=== PATIENT | female | born 1960 | race Caucasian/White ===

== ENCOUNTER → 2019-07-28 11:16 | Outpatient (BNVA) | payer OTHER, SELFPAY | PROVIDERS: Family Provider Nurse Practitioner; PCP Nurse Practitioner; Visit Provider Specialist | DX: M50.31 Other cervical disc degeneration, high cervical region (principal) | CPT/HCPCS: 99214 ==

== ENCOUNTER → 2019-08-27 15:13 | Outpatient (BNVA) | payer OTHER, SELFPAY | PROVIDERS: Family Provider Nurse Practitioner; PCP Nurse Practitioner; Referring Provider Nurse Practitioner; Visit Provider Podiatrist Foot & Ankle Surgery | DX: M21.612 Bunion of left foot (principal); M20.42 Other hammer toe(s) (acquired), left foot; M25.872 Other specified joint disorders, left ankle and foot; M79.672 Pain in left foot | CPT/HCPCS: 73630 ==

== ENCOUNTER → 2019-10-22 10:12 | Outpatient (BNVA) | payer OTHER, SELFPAY | PROVIDERS: Family Provider Nurse Practitioner; PCP Nurse Practitioner; Visit Provider Specialist | DX: M25.561 Pain in right knee (principal); M25.562 Pain in left knee | CPT/HCPCS: 73560; 73565 ==

== ENCOUNTER 2019-11-04 10:43 | Outpatient (CLI) | payer OTHER, SELFPAY ==
--- NOTE | 2019-11-04 10:49 | MM_ITS ---
WS: [id number] BILATERAL SCREENING DIGITAL MAMMOGRAM WITH CAD HISTORY: SCREENING COMPARISON: 05/25/2016 and 07/10/2018 Bilateral CC and MLO views submitted. Computer aided detection analyzed. Breast composition: There are scattered areas of fibroglandular density. No suspicious masses, microc alcifications or architectural distortion. Long-term asymmetry in the anterior RIGHT breast in the virk bareolar region. MM/[place] [id number] IMPRESSION: BI-RADS: 2-Benign FOLLOW UP: 1 Year Follow-up
== END 2019-11-04 10:44 | disposition home or self-care (01) ==
LOC: RADSHAW 10:44
PROVIDERS: PCP Nurse Practitioner; Visit Provider Nurse Practitioner
DX: Z12.31 Encounter for screening mammogram for malignant neoplasm of breast (principal)
CPT/HCPCS: 77067

== ENCOUNTER 2019-12-21 14:15 | Emergency (ER) | payer OTHER, SELFPAY ==
[2019-12-21 14:25] VITALS: BP 115/74; PULSE 81; RESP 14; TEMP 36.6; O2SAT 95; BMI 41.1
--- NOTE | 2019-12-21 14:26 | USCV_ITS ---
Glenna Miramontes Age: 59 Gender: F : 1960 Exam Date: 12/21/2019 15:15 Ordering Phys: Minnie Martinez Technologist: AVILA SUAZO Exam Location: [facility] [place] Indication: LEG SWELLING PROCEDURES: Venous duplex imaging was performed in only the right lower extremity. The following venous structures were evaluated: common femoral vein, profunda vein, proximal portion of the greater saphenous vein, superficial femoral vein, and the popliteal vein. In addition, the posterior tibial and peroneal trunk were evaluated. Serial compression, augmentation maneuvers, and spectral Doppler flow evaluation were performed. FINDINGS: Normal 2-D Doppler and augmentation and compressibility throughout the lower extremity venous structures. Additional imaging through the proximal calf veins also reveals no thrombus. Limited evaluation of the greater saphenous vein is patent with no thrombus. CONCLUSIONS No DVT right lower extremity. Dr. Cecy Aguila DO (Electronically Signed) Final Date: 22 December 2019 08:05 Amended: 24 December 2019 11:36 C
[2019-12-21 14:43] VITALS: BP 154/90; PULSE 79; RESP 18; O2SAT 97
[2019-12-21 14:48] VITALS: PULSE 79
--- NOTE | 2019-12-21 14:50 | ED_ITS ---
HPI - Extremity Problem General: Chief complaint: Extremity Problem,Nontraumatic Stated complaint: right leg swelling/possible blood clot Time Seen by Provider: 12/21/19 14:41 Source: patient Mode of arrival: ambulatory Limitations: no limitations History of Present Illness: HPI Narrative: Patient is a nice 59-year-old female who [facility] ED [facility]. Patient tells me over the past 2 weeks she has noticed a cord like area to the medial aspect of her right lower extremity. [facility] and told they would continue to monitor however upon her visit today they requested she come to the emergency department for DVT rule out. Patient has not had any generalized swelling to her lower extremity. She does not complain of calf pain. She has not had any redness or swelling. She does not complain of any shortness of breath, difficulty breathing, or chest pain. MD Complaint: extremity pain Onset (ago): week(s) Location: right and lower extremity Radiation: none Relieving factors: nothing Exacerbating factors: nothing Associated symptoms: Reports no associated symptoms; Deny chest pain or fever(s) Context: other (no risk factors for DVT present ) Review of Systems 2 Const: Denies: fever(s) or chills Card: Denies: chest pain, palpitations, irregular heart rhythm, lightheadedness, syncope, pre-syncope, dyspnea on exertion, orthopnea or leg pain with exertion Resp: Denies: dyspnea Musc: Denies: joint pain or joint swelling Neuro: Denies: numbness in extremities, weakness in extremities or sensory changes REPLACED BY [facility] PFSH: Medical History (Updated 12/21/19 @ 15:44 by FILIBERTO Leslie) Aneurysm Cervicalgia Diabetes Hyperkinetic syndrome Hyperlipidemia Hypersomnia Hypertension Hypothyroidism Migraine Sleep apnea Spondylosis of cervicothoracic spine with myelopathy Family History Other Hypertension Denies family history of Diabetes CAD (coronary artery disease) Cancer Stroke Social History Smoking and tobacco status: never smoked Alcohol intake: never History of recent travel: No Physical Exam Const: COMMON NORMALS: no acute distress, patient oriented x3, no limitations and alert Resp: COMMON NORMALS: normal respiratory effort and clear to auscultation bilaterally AUSCULTATION: clear to auscultation bilaterally Cardio: COMMON NORMALS: regular rate and regular rhythm RATE: regular rate RHYTHM: regular rhythm Extremity: OTHER: bilateral varicose veins; pt has palpable cord to medial R lower extremity consistent with probable superficial thrombus; no LE swelling/redness; no calf pain/negative Micki's Neuro: COMMON NORMALS: patient oriented x3, moves all extremities, no focal motor deficits, no sensory deficits noted and gait normal SENSORIUM/ORIENTATION: Yes alert Course Vital Signs: Vital signs: Vital Signs Temperature 97.8 F 12/21/19 14:25 Pulse Rate 80 12/21/19 15:34 Respiratory Rate 18 12/21/19 15:34 Blood Pressure 149/87 12/21/19 15:34 Pulse Oximetry 95 12/21/19 15:34 MDM - Extremity (Nontraumatic) Imaging Data^: US venous R LE: My impression: Catracho Gaitan, tech-no DVT visualized Discharge Plan Discharge Patient Disposition: Home, Self-Care Clinical Impression: Acute superficial venous thrombosis of right lower extremity Condition: Stable Prescriptions: No Action multivitamin Capsule 1 cap PO DAILY RF: 0 potassium chloride 20 mEq tablet extended release 20 meq PO DAILY RF: 0 ferrous gluconate 240 mg (27 mg iron) tablet 240 mg PO DAILY RF: 0 aspirin [Aspir-81] 81 mg tablet,delayed release (DR/EC) 81 mg PO DAILY RF: 0 cetirizine 10 mg capsule 10 mg PO DAILY RF: 0 lisinopril 20 mg tablet 20 mg PO BID RF: 0 furosemide 20 mg tablet 10 mg PO QAM RF: 0 omeprazole 20 mg capsule,delayed release(DR/EC) 20 mg PO DAILY RF: 0 atorvastatin 10 mg tablet 10 mg PO DAILY RF: 0 sertraline 100 mg tablet 150 mg PO DAILY RF: 0 bupropion HCl 300 mg tablet extended release 24 hr 300 mg PO QAM RF: 0 zonisamide 100 mg capsule 400 mg PO DAILY RF: 0 levothyroxine 25 mcg capsule 25 mcg PO DAILY RF: 0 Discharge Orders: Discharge Order (Routine); Ordered 12/21/19 Ordered By: Minnie Martinez Referrals: Gisel Rasmussen, [facility] [Primary Care Provider] - Patient Instructions: Superficial Thrombophlebitis (ED), Thrombophlebitis - Superficial Activity Restrictions/Additional Instructions: As discussed you may begin taking an anti-inflammatory medication as well as alternating ice/heat for the superficial thrombus/clot to your right leg. [facility] for reevaluation. You may return to the emergency department for any worsening symptoms, redness, swelling, shortness of breath, chest pains, or any other concerns you may have. Coding Level of Care Code ED Postal Supervisor for Maira Keith Exam Expanded Problem Focused
[2019-12-21 15:34] VITALS: BP 149/87; PULSE 80; RESP 18; O2SAT 95
[2019-12-21 16:17] VITALS: BP 163/97; PULSE 76; RESP 16; TEMP 36.9; O2SAT 96
== END 2019-12-21 16:20 | disposition home or self-care (01) ==
PROVIDERS: Emergency Provider Physician Assistant; PCP Nurse Practitioner
DX: I82.811 Embolism and thrombosis of superficial veins of right lower extremity (principal); Z79.82 Long term (current) use of aspirin; E11.9 Type 2 diabetes mellitus without complications; I10 Essential (primary) hypertension; E78.5 Hyperlipidemia, unspecified
CPT/HCPCS: 12345; 93971; 99281; 99282

== ENCOUNTER → 2020-03-17 07:37 | Outpatient (BNVA) | payer OTHER, SELFPAY | PROVIDERS: PCP Nurse Practitioner; Visit Provider Nurse Practitioner | DX: Z11.59 Encounter for screening for other viral diseases (principal) | CPT/HCPCS: 87635 ==

== ENCOUNTER → 2020-06-09 13:31 | Outpatient (BNVA) | payer OTHER, SELFPAY | PROVIDERS: PCP Nurse Practitioner; Visit Provider Podiatrist Foot & Ankle Surgery | DX: M20.42 Other hammer toe(s) (acquired), left foot (principal); M21.612 Bunion of left foot; M25.879 Other specified joint disorders, unspecified ankle and foot | CPT/HCPCS: 73630 ==

== ENCOUNTER → 2020-07-04 17:34 | Outpatient (BNVA) | payer OTHER, SELFPAY | PROVIDERS: PCP Nurse Practitioner; Visit Provider Podiatrist Foot & Ankle Surgery | DX: M20.42 Other hammer toe(s) (acquired), left foot (principal); M24.572 Contracture, left ankle; M21.612 Bunion of left foot; M25.872 Other specified joint disorders, left ankle and foot | CPT/HCPCS: 87635 ==

== ENCOUNTER → 2020-08-01 13:22 | Outpatient (BNVA) | payer OTHER, SELFPAY | PROVIDERS: PCP Nurse Practitioner; Visit Provider Podiatrist Foot & Ankle Surgery | DX: Z01.812 Encounter for preprocedural laboratory examination (principal); M20.42 Other hammer toe(s) (acquired), left foot; M21.612 Bunion of left foot; M24.572 Contracture, left ankle; M25.872 Other specified joint disorders, left ankle and foot | CPT/HCPCS: 87635 ==

== ENCOUNTER 2020-08-05 07:01 | Day surgery (SDC) | payer OTHER, SELFPAY ==
[2020-07-07 09:23] VITALS: BMI 41.1
[2020-08-05] VITALS (7 sets, daily range): BP systolic 106–155; BP diastolic 59–79; PULSE 72–77; RESP 18; TEMP 36.2–36.6; O2SAT 95–99
--- NOTE | 2020-08-05 | SCC_ITS ---
Procedure Done: Left bunionectomy with double osteotomy CPT code 44743. Left gastrocnemius recession CPT code 77982. Left second hammertoe repair CPT code 62981. Left third hammertoe repair CPT code 25363. 11 seconds of fluoroscopic guidance, for a cumulative dose of 0.16 mGy, was provided to Dr. Haddad by the radiology department. C-arm images of the LEFT foot were saved for the patient's permanent record. YUNI
--- NOTE | 2020-08-05 06:40 | P.HP_ITS ---
Providers/Chief Complaint Primary Care Provider: KELSI Smith Chief Complaint: buinon left foot History of Present Illness Ms. Miramontes is a pleasant 59-year-old female presenting to clinic for evaluation of left foot pain. She complains of bunion pain, second toe and third toe pain that has been progressive over the course of many years, at this point it is affecting her everyday life, describes the nature of the pain is sharp stabbing. She has pain when weightbearing and while active. She has been utilizing orthotics as well as wide accommodative shoes. She has a history of a bunionectomy and hammertoe repair of the right foot this was performed by Dr. Springer. Patient is wishing to discuss surgical options for her left foot at this time as she has been exhausting conservative measures for approximately 2 y ears including stretching, NSAIDs, activity modifications, supportive shoes with wide toe box and orthotics. Review of Systems General: Reports: 10 or more systems reviewed and unremarkable except in HPI and below Const: Denies: fever(s) or chills Eyes: Denies: change in vision Card: Denies: chest pain or palpitations Resp: Denies: dyspnea or productive cough GI: Denies: abdominal pain, nausea or vomiting : Denies: flank pain Musc: Reports: extremity pain, joint pain, joint stiffness, limited range of m otion and deformity Skin/Breast: Reports: skin tenderness; Denies: rash Neuro: Reports: difficulty walking; Denies: numbness in extremities, sensory changes or frequent falls Psych: Denies: suicidal ideation Lul/Lymph: Denies: easy bruising Medications/Allergies Home Medications Medication Instructions Recorded Confirmed Last Taken Type aspirin 81 mg tablet,delayed 81 mg PO DAILY 07/28/19 07/07/20 Unknown History release atorvastatin 10 mg tablet 10 mg PO DAILY 07/28/19 07/07/20 Unknown History bupropion HCl 300 mg 24 hr tablet, 300 mg PO QAM 07/28/19 07/07/20 Unknown History extended release cetirizine 10 mg capsule 10 mg PO DAILY 07/28/19 07/07/20 Unknown History ferrous gluconate 240 mg (27 mg 240 mg PO DAILY 07/28/19 07/07/20 Unknown History iron) tablet furosemide 20 mg tablet 10 mg PO QAM 07/28/19 07/07/20 Unknown History levothyroxine 25 mcg capsule 25 mcg PO DAILY 07/28/19 07/07/20 Unknown History lisinopril 20 mg tablet 20 mg PO BID 07/28/19 07/07/20 Unknown History multivitamin 1 cap PO DAILY 07/28/19 07/07/20 Unknown History omeprazole 20 mg capsule,delayed 20 mg PO DAILY 07/28/19 07/07/20 Unknown History release potassium chloride 20 mEq 20 meq PO DAILY 07/28/19 07/07/20 Unknown History tablet,extended release sertraline 100 mg tablet 150 mg PO DAILY tab 07/28/19 07/07/20 Unknown History zonisamide 100 mg capsule 400 mg PO DAILY cap 07/28/19 07/07/20 Unknown History crutch #2 [id number] 07/06/20 07/07/20 Unknown Rx Allergies Allergy/AdvReac Type Severity Reaction Status Date / Time pravastatin Allergy unknown Verified 06/09/20 13:47 PFSH PFSH: Medical History (Updated 08/05/20 @ 07:07 by Jassi Haddad DPM) Aneurysm Cervicalgia Diabetes Hyperkinetic syndrome Hyperlipidemia Hypersomnia Hypertension Hypothyroidism Migraine Sleep apnea Spondylosis of cervicothoracic spine with myelopathy Family History Other Hypertension Denies family history of Diabetes CAD (coronary artery disease) Cancer Stroke Social History Smoking and tobacco status: never smoked Alcohol intake: never History of recent travel: No Physical Exam Narrative: EXAM NARRATIVE: GENERAL: Patient is alert and oriented ?3 and in no acute distress. The following is a focused bilateral lower extremity exam. VASCULAR: Dorsalis pedis and posterior tibial arteries palpable +2 bilaterally. Capillary refill time less than 3 seconds to the distal hallux bilaterally. Calf is supple and nontender proximally and distally. Pedal hair growth present. NEUROLOGICAL: Protective sensation intact 10/10 sites, tested with [place] monofilament to bilateral feet. DERMATOLOGICAL: Skin is well-hydrated, normal texture and turgor. Well-healed cicatrix of the right bunion and hammertoe correction sites. Mild friction irritation at the dorsal medial eminence of the left bunion deformity as well as at the dorsum of the left second hammertoe at the PIPJ. Dystrophic second toenail bilaterally. MUSCULOSKELETAL: Left bunion deformity is beginning to crossover the second toe. This is reducible. Osseous prominence at the medial aspect of the first metatarsal phalangeal joint left foot. Tenderness to palpation at the bunion site left foot. Hallux is not track bound. Hammertoe deformity that is red ucible left second with sagittal plane dominance there is pain to palpation at the PIPJ as well as at the metatarsal phalangeal joint. Pain with anterior drawer sign of the left second toe at the metatarsal phalangeal joint. Pes planus foot type. Ankle joint dorsiflexion is 5 degrees beyond neutral with knee flexed and to neutral with knee extended. Second toe does not purchase, only touches at tip of toe Resp: COMMON NORMALS: normal respiratory effort, No retractions, No use of accessory muscles and clear to auscultation bilaterally EFFORT & INSPECTION: Yes able to speak in complete sentences and Yes symmetric chest movement AUSC ULTATION: clear to auscultation bilaterally Cardio: COMMON NORMALS: regular rate, regular rhythm and Peripheral pulses 2+ throughout RATE: regular rate RHYTHM: regular rhythm PERIPHERAL PULSES: Peripheral pulses 2+ throughout A&P Assessment and plan (1) Predislocation syndrome of metatarsophalangeal joint: Status: Acute Qualifiers: Laterality: left Qualified Code(s): M25.872 - Other specified joint disorders, left ankle and foot (2) Bunion, left foot: Status: Acute (3) Other hammer toe(s) (acquired), left foot: Status: Acute (4) Contracture, left ankle: Status: Acute Patient examined and evaluated, findings and treatment options discussed with patient at length. Reviewed x-rays weightbearing 3 views left foot at today's visit shows increased first intermetatarsal angle, bony hypertrophy at the first metatarsal head and hallux valgus. Also gunbarrel sign and hammertoe deformity 2 and 3 left foot. No fracture dislocation appreciated. She has exhausted conservative measures consisting of wide accommodative shoes with supportive insoles and functional orthotics, activity modifications, stretching, padding and spacers as well as NSAIDs. At this point her left bunion and hammertoe deformities prevent her from enjoying recreational activities. She also has pain on a daily basis with regular activity would like to discuss surgical intervention. I recommended Samuel bunionectomy with Noah osteotomy and plantar plate repair with hammertoe correction of the second toe and hammertoe correction of the third as well as gastrocnemius recession all in the left lower extremity. Risks include pain, bleeding, numbness, infection, hardware failure, painful retained hardware, delayed union, malunion, nonunion, overcorrection of deformity, transfer pressure and transfer lesions, damage to adjacent soft tissue structures, persistent swelling, hypersensitivity, painful scar, bruising, surgical site dehiscence and need for further surgical intervention. Patient is agreeable wishes to proceed. Bunionectomy, second and third hammertoe repair, possible Edwin osteotomy of the second metatarsal and gastrocnemius recession all left lower extremity. Date of operation 07/08/2020, MAC or general anesthesia per anesthesia preference. Duration of procedure 120 minutes. Coding Level of Care Code Acute Stiff Leg Derrick Operator for g Fwd Diagnoses Predislocation syndrome of metatarsophalangeal joint M25.872 Laterality: left Bunion, left foot M21.612 Other hammer toe(s) (acquired), left foot M20.42 Contracture, left ankle M24.572
[2020-08-05] MEDS: sodium chloride 0.9% 1,000 ML 30 ML IV (07:40)
--- NOTE | 2020-08-05 08:04 | ANES.PREANE2 ---
Pre-Anesthetic Assessment Pre-Anesthetic Assessment: Height/Weight: Height 1.8 m Weight 133.81 kg Temp Pulse Resp BP Pulse Ox 97.8 F 76 18 152/79 97 08/05/20 07:20 08/05/20 07:20 08/05/20 07:20 08/05/20 07:20 08/05/20 07:20 Preop Diagnosis: Bunion and hammertoes 2 and 3 with ankle equinus left lower extremity Proposed Procedure: Operation Date: 08/05/20 08:35 Proposed Procedures p Bunionectomy Samuel with double osteotomy [id number] 15256 22951 M21.612 M20.42 M24.572(Left) - MARK Ritchie Hammertoe Correction 2 and 3 toe Edwin osteotomy(Left) - MARK Ritchie Gastrocnemius Recession all left lower extremity(Left) - MARK Ritchie Edwin Osteotomy second and third(Left) - Jassi Haddad DPM Familial anesthetic complications: None Last intake: Intake Last Liquid Date 08/04/20 Last Liquid Time 23:30 Last Solid Date 08/04/20 Last Solid Time 23:30 Social: Social History: No alcohol and No tobacco Exam: Pre-Anes Outpt Exam: alert, oriented x 3, clear to auscultation bilaterally and regular rate & rhythm Airway: Cervical ROM: WNL MP: 4 Dentition: Chipped Pulmonary: Pulmonary: Sleep apnea CV/HEM: CV/HEM: HTN GI: GI: GERD Metabolic: Metabolic: Hyperlipidemia, Morbid obesity and Thyroid Anesthetic Plan: Anesthesia: MAC and Regional (specify below) Risk of > 500 ml blood loss (7ml/kg in children): No Meds/Allergies Current Medications: Current Medications Generic Name Dose Route Start Last Admin Trade Name Freq PRN Reason Stop Dose Admin Sodium Chloride 1,000 mls @ 30 ml s/hr 08/05/20 07:15 08/05/20 07:40 Sodium Chloride 0.9% IV 08/06/20 07:14 30 mls/hr .Q24H FAHAD Administration PFSH Anesthesia PFSH: Medical History (Updated 08/05/20 @ 07:07 by Jassi Haddad DPM) Aneurysm Cervicalgia Diabetes Hyperkinetic syndrome Hyperlipidemia Hypersomnia Hypertension Hypothyroidism Migraine Sleep apnea Spondylosis of cervicothoracic spine with myelopathy Family History Other Hypertension Denies family history of Diabetes CAD (coronary artery disease) Cancer Stroke Social History Smoking and tobacco status: never smoked Alcohol intake: never History of recent travel: No Data Anesthesia Cardiac Studies: No Data to Display
--- NOTE | 2020-08-05 08:05 | ANES.PROC ---
Anesthesia Procedures Procedure/Date: 08/05/20 Nerve Block ^: Nerve Block 1: Main Anesthesia: general anesthesia Time Out Performed: Yes Consent: requested by attending/covering physician, from patient, risks and benefits reviewed and patient agrees to proceed Nerve block location: popliteal (L) Anesthesia monitors applied: pulse oximetry, EKG, BP cuff and oxygen Nerve block position: supine Anesthetic Used: ropivicaine 0.5% and with decadron (4 mg) Amount of anesthesia used (mL): 30 Ultrasound used to: recognize landmarks Nerve Stimulator Used?: No Interscalene/Femoral BLK: 4 stimuplex 21 g needle used for position and inplane approach, visualize local anesthetic spread and no vascular puncture identified Injection: neg aspiration of heme and paresthesia +/- Patient Tolerated Procedure: well and no complications Complications: none
--- NOTE | 2020-08-05 10:46 | P.HPUD_ITS ---
Surgery/Procedure H&P Update DATE OF PROCEDURE: August 05, 2020 DATE H&P PERFORMED: 08/05/20 H&P UPDATE INFORMATION: I have reviewed H&P completed within last 30 days, I have examined patient prior to procedure, No changes to prior documentation and H&P is in [facility] date indicated PREOP DIAGNOSIS: Bunion and hammertoes 2 and 3 with ankle equinus left lower extremity PLANNED PROCEDURE: Operation Date: 08/05/20 08:35 Proposed Procedures p Bunionectomy Samuel with double osteotomy [id number] 02295 78432 06644 92692 M21.612 M20.42 M24.572(Left) - MARK Ritchie Hammertoe Correction 2 and 3 toe Edwin osteotomy(Left) - MARK Ritchie Gastrocnemius Recession all left lower extremity(Left) - MARK Ritchie Edwin Osteotomy second and third(Left) - Jassi Haddad DPM
--- NOTE | 2020-08-05 10:51 | XR_ITS ---
WS: [id number] Left foot, 3 views, 08/05/2020 Clinical Data: post op Comparison: Left foot, 06/09/2020. Findings: The patient has had a bunionectomy with a distal right left first metatarsal osteotomy fixed with an orthopedic screw. There is an osteotomy at the base of the left first toe proximal phalanx. There are also orthopedic fusions of the left second and third toes. Orthopedic pins extend from the distal phalanges of the second and third toes and of the heads of the second and third metatarsals. XR/XR foot LT min 3V* [id number] Impression: 1. Bunionectomy of the left great toe. 2. Fusions of the left second and third toes.
--- NOTE | 2020-08-05 10:51 | PM.OP ---
Operative Report Date of procedure: August 05, 2020 Pre-op Diagnosis: Bunion and hammertoes 2 and 3 with ankle equinus left lower extremity Post-op diagnosis: same Procedure Done: Left bunionectomy with double osteotomy CPT code 78269. Left gastrocnemius recession CPT code 42043. Left second hammertoe repair CPT code 39059. Left third hammertoe repair CPT code 63258. Implants: Christine 3.0 mm headed partially-threaded cannulated screw 22 mm in length. Christine 10 x 10 x 10 mm nitinol staple. 0.62 K wire x2. 3-0 Vicryl, 4-0 Vicryl, 4-0 nylon. Pathology: none sent Surgeon: Jassi Haddad D.P.M. Family Resource Specialist: Shon Anesthesia: MAC Estimated blood loss: Less than 10 mL Tourniquet time: 77 minutes IV fluids: None Urine output: None Complications: None Findings: None Condition: stable Disposition: PACU Brief History: Discussed risks versus benefits of surgical intervention include pain, bleeding, numbness, infection, hardware failure, hardware irritation, delayed union, malunion, nonunion, avascular necrosis, loss of function, damage to adjacent soft tissue structures, failure to correct deformity, overcorrection of deformity, hallux varus, need for further surgical intervention. Patient interviewed preoperatively and all questions answered to her satisfaction. Informed consent is signed by myself and patient as well as initialed patient's left lower extremity with skin marker. Patient wishes to proceed. No guarantees written, expressed or implied. Procedure: Under mild sedation the patient was brought to the operating room and placed on the operating table in supine position. A timeout was performed. Anesthesia was administered by the anesthesia service. Local anesthesia injected by myself left male block, second ray block and third ray block to the left foot. Popliteal block performed preoperatively per anesthesia greatly appreciated. Well-padded pneumatic tourniquet applied to the left thigh. Left lower extremity was then scrubbed, prepped and draped utilizing normal aseptic technique. Left foot and lower leg were examined a weighted with an Esmarch bandage and a tourniquet inflated to 300 mmHg. Attention was directed to the medial aspect of the left leg at the myotendinous juncture of the Achilles and gastrocnemius insoles juncture. Linear longitudinal incision was made through skin and blunt dissection carried down to crural fascia which was incised with a #15 blade. The gastrocnemius aponeurosis and fascia were incised longitudinally from lateral to medial in a transverse fashion with a #15 blade visualizing the release and intraoperatively appreciating more dorsiflexion at the left ankle. Incision site was flushed with copious amounts of sterile saline solution and crural fascia and subcutaneous tissue reapproximated utilizing 3-0 Vicryl skin closed utilizing 4-0 nylon. Area was covered with an OpSite. Attention was then directed to the dorsal medial aspect of the left first metatarsophalangeal joint where a linear longitudinal incision was made medial and parallel to the extensor houses longus tendon. Dissection was carried down to periosteum and first metatarsophalangeal joint capsule utilizing sharp and blunt technique. Care was taken to retract and preserve neurovascular and tendinous structures. Bleeders were ligated and cauterized as necessary. The head of the first metatarsal was then exposed and freed of its capsular and soft tissue attachments and transection of the medial eminence was performed utilizing sagittal saw this was passed from the operative field. Next utilizing a access guide in the medial aspect of the first metatarsal a chevron style osteotomy was performed with the apex pointed distally through and through with the head of the first metatarsal translated laterally and impacted on the first metatarsal this was then fixated utilizing standard AO technique utilizing a Christine 3.0 mm headed partially-threaded cannulated screw 22 mm in length with excellent bony apposition and compression noted. Temporary fixation was removed. All rough edges were smoothed and normal contour at the first metatarsal head carried out. Incision site was flushed with saline solution and capsular debulking performed sharply with browns and 15 blade at the medial capsule. Noah osteotomy was then performed maintaining a lateral cortical hinge at the proximal portion of the proximal phalanx of the left hallux and secured utilizing a [place] 10 mm x 10 mm x 10 mm nitinol staple. Excellent bony apposition and compression noted as well as placement of hardware confirmed with fluoroscopy noted to be great in all 3 cardinal planes improved sesamoid position and reduced intermetatarsal angle and more rectus alignment of the metatarsal and first toe. Capsular structure was then closed utilizing 3-0 Vicryl subcutaneous closed utilizing 4-0 Vicryl and skin closed utilizing 4-0 nylon. Also of note a lateral release was performed a small stab incision was then closed utilizing 4-0 nylon. Attention was then directed to the dorsal aspect of the left second and third toes where a linear longitudinal incision was made at the dorsum of the second toe at the level of the proximal interphalangeal joint with a #15 blade. Dissection carried down to the extensor tendon which was transected at the level of the proximal interphalangeal joint the head of the proximal phalanx and base of the intermediate phalanx of both the second and third toes were denuded of the articular surface and this was passed from operative field. Next utilizing an antegrade technique a K wire was integrated from the base of the intermediate phalanx of the second and third toe out the distal aspect of the second third toe and then retrograded posteriorly into the proximal phalanx and secured across the metatarsal phalangeal joint for added stability placement confirmed with intraoperative fluoroscopy noted be excellent at both the left second and third toes. Incisions were flushed with saline solution. Extensor tendon reapproximated of the second and third toe utilizing 4-0 Vicryl. And skin closed at the second and third toe left foot utilizing 4-0 nylon. Incision sites were dressed with Adaptic, sterile 4 x 4, Kerlix and [place] wrap. Pin covers were applied on toes 2 and 3. Final fluoroscopy utilized to confirm excellent placement of all hardware and correction of left bunion and second and third hammertoe deformities. Cam boot was applied to the left lower extremity. Tourniquet was deflated and a prompt hyperemic response was noted to toes 1 through 5 left foot. Patient tolerated the procedure well and was transferred to the PACU with vital signs stable and vascular status intact. Following a period of postoperative monitoring she will be discharged home was prescribed Percocet 10/325 mg to be taken every 6 hours as needed for pain. She was also provided discharge instructions on discharge paperwork as well as follow-up day and my cell phone number for any complications.
--- NOTE | 2020-08-05 14:20 | ANE.PACU2 ---
Inpatient post-anesthesia follow up: Airway intact: Yes Vital signs: Temperature 97.7 F Pulse Rate 73 Respiratory Rate 18 Blood Pressure 155/79 Pulse Oximetry 96 Oxygen Delivery Me thod Room Air Oxygen Flow Rate 8 Fraction of Inspir ed Oxygen Hydration adequate: Yes Nausea and vomiting: No Pain level: 1 Mental status: Baseline
== END 2020-08-05 12:55 | disposition home or self-care (01) ==
PROVIDERS: PCP Nurse Practitioner; Visit Provider Podiatrist Foot & Ankle Surgery
PROC: (CPT 28296; principal; 2020-08-05 08:35)
PROC: (CPT 28285; 2020-08-05 08:35)
PROC: (CPT 27687; 2020-08-05 08:35)
DX: M21.612 Bunion of left foot (principal); M20.42 Other hammer toe(s) (acquired), left foot; M25.872 Other specified joint disorders, left ankle and foot; M24.572 Contracture, left ankle; G47.30 Sleep apnea, unspecified; I10 Essential (primary) hypertension; E78.5 Hyperlipidemia, unspecified; E66.01 Morbid (severe) obesity due to excess calories; Z68.41 Body mass index [BMI] 40.0-44.9, adult; E11.9 Type 2 diabetes mellitus without complications; E03.9 Hypothyroidism, unspecified; Z79.82 Long term (current) use of aspirin
CPT/HCPCS: 27687; 28285 ×2; 28299; 64450; 73630; 76000; 76942; 96365; C1713; J0690; J1100; J2250; J2704; J2795; J3010; J3490; J7030

== ENCOUNTER → 2020-08-12 09:34 | Outpatient (BNVA) | payer OTHER, SELFPAY | PROVIDERS: PCP Nurse Practitioner; Visit Provider Podiatrist Foot & Ankle Surgery | DX: M20.42 Other hammer toe(s) (acquired), left foot (principal) | CPT/HCPCS: 73620; 73630 ==

== ENCOUNTER → 2020-08-22 10:16 | Outpatient (BNVA) | payer OTHER, SELFPAY | PROVIDERS: PCP Nurse Practitioner; Visit Provider Podiatrist Foot & Ankle Surgery | DX: M21.612 Bunion of left foot (principal); M20.42 Other hammer toe(s) (acquired), left foot; M24.572 Contracture, left ankle; M25.872 Other specified joint disorders, left ankle and foot | CPT/HCPCS: 73620; 73630 ==

== ENCOUNTER → 2020-08-26 12:53 | Outpatient (BNVA) | payer OTHER, SELFPAY | PROVIDERS: PCP Nurse Practitioner; Visit Provider Podiatrist Foot & Ankle Surgery | DX: M21.612 Bunion of left foot (principal); M20.42 Other hammer toe(s) (acquired), left foot; M25.872 Other specified joint disorders, left ankle and foot; M24.572 Contracture, left ankle | CPT/HCPCS: 73630 ==

== ENCOUNTER → 2020-09-26 11:34 | Outpatient (BNVA) | payer OTHER, SELFPAY | PROVIDERS: PCP Nurse Practitioner; Visit Provider Podiatrist Foot & Ankle Surgery | DX: Z48.89 Encounter for other specified surgical aftercare (principal); M79.672 Pain in left foot | CPT/HCPCS: 73630 ==

== ENCOUNTER → 2020-10-13 14:01 | Outpatient (BNVA) | payer OTHER, SELFPAY | PROVIDERS: Family Provider Nurse Practitioner; PCP Nurse Practitioner; Visit Provider Specialist | DX: G43.909 Migraine, unspecified, not intractable, without status migrainosus (principal); M48.02 Spinal stenosis, cervical region | CPT/HCPCS: 99213 ==

== ENCOUNTER → 2020-10-17 14:41 | Outpatient (BNVA) | payer OTHER, SELFPAY | PROVIDERS: Family Provider Nurse Practitioner; PCP Nurse Practitioner; Visit Provider Podiatrist Foot & Ankle Surgery | DX: Z48.89 Encounter for other specified surgical aftercare (principal); B35.1 Tinea unguium; M77.32 Calcaneal spur, left foot | CPT/HCPCS: 73630 ==

== ENCOUNTER → 2020-11-14 13:26 | Outpatient (BNVA) | payer OTHER, SELFPAY | PROVIDERS: Family Provider Nurse Practitioner; PCP Nurse Practitioner; Visit Provider Specialist | DX: M25.561 Pain in right knee (principal); M25.562 Pain in left knee; M17.0 Bilateral primary osteoarthritis of knee | CPT/HCPCS: 73560; 73565 ==

== ENCOUNTER → 2020-11-28 14:44 | Outpatient (BNVA) | payer OTHER, SELFPAY | PROVIDERS: Family Provider Nurse Practitioner; PCP Nurse Practitioner; Visit Provider Podiatrist Foot & Ankle Surgery | DX: Z48.89 Encounter for other specified surgical aftercare (principal); B35.1 Tinea unguium; L60.3 Nail dystrophy; M77.31 Calcaneal spur, right foot | CPT/HCPCS: 73630 ==

== ENCOUNTER 2021-02-09 16:26 | Emergency (ER) | payer OTHER, MEDICARE, SELFPAY ==
[2021-02-09 16:35] VITALS: BP 141/89; PULSE 86; RESP 16; TEMP 36.8; O2SAT 95; BMI 39.7
[2021-02-09 18:00] VITALS: BP 150/108; PULSE 88; O2SAT 95
--- NOTE | 2021-02-09 18:26 | CTR_ITS ---
PROCEDURE INFORMATION: Exam: CT Head Without Contrast Exam date and time: 02/09/2021 6:26 PM Age: 60 years old Clinical indication: Dizziness; Additional info: Light-headedness TECHNIQUE: Imaging protocol: Computed tomography of the head without contrast. Radiation optimization: All CT scans at this facility use at least one of these dose optimization techniques: automated exposure control; mA and/or kV adjustment per patient size (includes targeted exams where dose is matched to clinical indication); or iterative reconstruction. COMPARISON: CT head wo con* [id number] 06/17/2015 8:09 AM RADIATION DOSE METRICS: Total DLP (mGy-cm): 904.9 FINDINGS: Brain: The brain is unremarkable. There is no mass effect or significant white matter disease. There is no acute intracranial hemorrhage. Cerebral ventricles: There is no significant ventricular dilation. The basal cisterns are unremarkable. Paranasal sinuses: The paranasal sinuses are clear. Mastoid air cells: The mastoid air cells are clear. Bones/joints: The calvarium is intact. Soft tissues: The visible extracranial soft tissues are unremarkable. CT/CT head wo con* [id number] IMPRESSION: No acute intracranial abnormality. Radiation Dose CTDIVOL = (mGy): DLP = 904.9 (mGy-cm)
--- NOTE | 2021-02-09 18:26 | CTR_ITS ---
PROCEDURE INFORMATION: Exam: CT Angiography Head With Contrast, Arteriography Exam date and time: 02/09/2021 6:26 PM Age: 60 years old Clinical indication: Dizziness and giddiness; Additional info: Light-headedness on standing TECHNIQUE: Imaging protocol: Computed tomography angiography of the head with contrast. Exam focused on the arteries. 3D rendering (Not supervised by radiologist): MIP and/or 3D reconstructed images were created by the technologist. Radiation optimization: All CT scans at this facility use at least one of these dose optimization techniques: automated exposure control; mA and/or kV adjustment per patient size (includes targeted exams where dose is matched to clinical indication); or iterative reconstruction. Contrast material: OMNI 350; Contrast volume: 95 ml; Contrast route: INTRAVENOUS (IV); COMPARISON: CT head wo con* [id number] 02/09/2021 7:56 PM RADIATION DOSE METRICS: Total DLP (mGy-cm): 2527.46 FINDINGS: ANTERIOR CIRCULATION: Right internal carotid artery: Unremarkable. Intracranial segment is patent with no significant stenosis. No aneurysm. Right middle cerebral artery: Unremarkable. No occlusion or significant stenosis. No aneurysm. Right anterior cerebral artery: Unremarkable. No occlusion or significant stenosis. No aneurysm. Left internal carotid artery: Unremarkable. Intracranial segment is patent with no significant stenosis. No aneurysm. Left middle cerebral artery: Unremarkable. No occlusion or significant stenosis. No aneurysm. Left anterior cerebral artery: Unremarkable. No occlusion or significant stenosis. No aneurysm. POSTERIOR CIRCULATION: Right vertebral artery: Unremarkable. No occlusion or significant stenosis. No aneurysm. Left vertebral artery: Unremarkable. No occlusion or significant stenosis. No aneurysm. Basilar artery: Unremarkable. No occlusion or significant stenosis. No aneurysm. Right posterior cerebral artery: Unremarkable. No occlusion or significant stenosis. No aneurysm. Left posterior cerebral artery: Unremarkable. No occlusion or significant stenosis. No aneurysm. Veins: There is a cluster of prominent veins along the medial aspect of the left cerebellar hemisphere associated with a prominent draining vein consistent with a venous angioma. Brain: No definite mass, mass effect, or midline shift. Cerebral ventricles: No ventriculomegaly. Bones/joints: Unremarkable. No acute fracture. Soft tissues: Unremarkable. IMPRESSION: 1. No arterial stenosis, occlusion or aneurysm. 2. 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 PROCEDURE INFORMATION: Exam: CT Angiography Neck With Contrast Exam date and time: 02/09/2021 6:26 PM Age: 60 years old Clinical indication: Dizziness and giddiness; Additional info: Light-headedness on standing TECHNIQUE: Imaging protocol: Computed tomography angiography of the neck with contrast. 3D rendering (Not supervised by radiologist): MIP and/or 3D reconstructed images were created by the technologist. Radiation optimization: All CT scans at this facility use at least one of these dose optimization techniques: automated exposure control; mA and/or kV adjustment per patient size (includes targeted exams where dose is matched to clinical indication); or iterative reconstruction. Contrast material: OMNI 350; Contrast volume: 95 ml; Contrast route: INTRAVENOUS (IV); COMPARISON: CT head wo con* [id number] 02/09/2021 7:56 PM RADIATION DOSE METRICS: Total DLP (mGy-cm): 2527.46 FINDINGS: Right common carotid artery: No stenosis. No dissection or occlusion. Right internal carotid artery: There is mild atherosclerotic disease in the cavernous portion of the right internal carotid artery without significant stenosis. Right external carotid artery: No occlusion or stenosis of the origin. Left common carotid artery: No stenosis. No dissection or occlusion. Left internal carotid artery: There is mild atherosclerotic disease at the origin of the left internal carotid artery with less than 50% stenosis. Left external carotid artery: No occlusion or stenosis of the origin. Right vertebral artery: No stenosis. No dissection or occlusion. Left vertebral artery: No stenosis. No dissection or occlusion. Veins: Dural venous sinuses are patent. Soft tissues: Soft tissues in the neck and thoracic inlet are unremarkable. Bones/joints: No acute fracture. Multilevel disc findings: There is moderate degenerative disc disease in the cervical spine. Lungs: Lung apices are clear. CT/CT angio headneck* [id number] IMPRESSION: No arterial stenosis, occlusion or aneurysm. REFERENCES: NASCET CRITERIA. The degree of internal carotid artery stenosis is based on NASCET criteria. Normal is no stenosis. Mild is less than 50% stenosis. Moderate is 50-69% stenosis. Severe is 70% to 99% stenosis. Total occlusion is no detectable patent lumen. Radiation Dose CTDIVOL = (mGy): DLP = 2527.46~2527.46 (mGy-cm)
--- NOTE | 2021-02-09 18:57 | ECG_ITS ---
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 Measurements Intervals [place] Rate: 75 P: 14 OR: 149 QRS: 59 QRSD: 95 T: 68 QT: 398 QTc: 446 Interpretive Statements SINUS RHYTHM No previous ECG available for comparison Electronically Signed On 02-10-2021 20:34:44 CDT by Kem Negrete M.D. [email or web address]
--- NOTE | 2021-02-09 18:58 | W.ED.GENADLT ---
HPI - General Adult General: Chief complaint: Dizziness Stated complaint: Dizziness, Vision problems Time Seen by Provider: 02/09/21 16:57 History of Present Illness: HPI narrative: Patient is a 60-year-old female history of diabetes, hypertension, hypothyroidism who presents emergency room with lightheadedness x1 weeks upon standing. Patient says that she has a floaters in her eyes when she stands up. This, patient reports feeling lightheaded almost passing out. Denies any exertional chest pain shortness breath, palpitation, chest pain at rest. Patient has no focal neurological deficit, no LOC is in the past from these episodes. Patient denies any focal weakness, dysarthria, diplopia, facial droop, acute blindness or eye pain. Patient denies any changes in her visual acuity. Onset:1 week ago Duration:1 week Location:home Severity:moderate Review of Systems Narrative: Constitutional: No fever, no chills. HEENT: No vision changes, +floaters b/l CV: No chest pain, no palpitations PULM: no cough, no dyspnea. GI: No abdominal pain, no N/V/D. : No dysuria MSKEL: No muscle pain SKIN: No new rashes, no lesions. NEURO: No headache, no focal weakness. HEME: No visible bruises PSYCH: Normal mood PFSH ED PFSH: Medical History (Updated 02/09/21 @ 22:11 by Sneha Hendrix MD) Aneurysm Cervicalgia Diabetes Hyperkinetic syndrome Hyperlipidemia Hypersomnia Hypertension Hypothyroidism Migraine Sleep apnea Spondylosis of cervicothoracic spine with myelopathy Family History Other Hypertension Denies family history of Diabetes CAD (coronary artery disease) Cancer Stroke Social History Alcohol intake: never History of recent travel: No Female Reproductive History: Date of last menstrual period: 08/25/20 Physical Exam Narrative: EXAM NARRATIVE: Head: Atraumatic Eyes: PERRL, conjunctiva without injection, visual acuity 20 out of 20 bilaterally, pupil equal and reactive, EOMI ENT: Mucous membrane moist NECK: Supple, ROM intact LUNGS: LCTAB, no crackles/rhonchi CV: RRR ABDOMEN: Soft, nontender in all quadrants EXTREMITY: Normal ROM SKIN: No rash or erythema NEURO: Mental status? Awake, alert, and oriented to self, year, month, location, and situation.? Following simple axial and appendicular commands.? Has appropriate fund of knowledge, comprehension, and insight.? Able to recall and understands pertinent aspects of medical history and current treatment status.? ? Language? Speech is fluent without word-finding difficulties.? Intact naming, expression, switchboard receptionist, and repetition.? ? Cranial nerves? 2,3,4,6: PERRL, EOMI with no nystagmus. 5: Intact sensation to light touch, symmetric? 7: Smile symmetrical, no facial droop.? 8: Hearing grossly intact.? 9,10: Normal palate movement.? 11: Normal strength in trapezius bilaterally 12: Tongue protrudes midline.? ? Motor examination? Normal bulk & tone. Strength as follows (R/L): Delts (5/5), Biceps (5/5), Triceps (5/5), Wrist ext (5/5), hip flexors (5/5), plantarflexors (5/5), dorsiflexors (5/5). Sensation? Light Touch: Grossly intact and equal in upper and lower extremities bilaterally? Romberg: Negative.? Distal joint position sense intact ? Coordination? Pdnwmd-mw-sutt-finger movements intact without dysmetria or past-pointing.? Rapid fingertaps: preserved amplitude without decriment.? No tremor, myoclonus or truncal ataxia.? ? Gait/stance? Steady, normal narrow base gait with appropriate arm swing and turning.? Tandem gait without hesitation or loss of balance. PSYCH: Normal mood and affect Course Vital Signs: Vital signs: Vital Signs Temperature 98.3 F 02/09/21 16:35 Pulse Rate 84 02/09/21 22:31 Respiratory Rate 18 02/09/21 22:31 Blood Pressure 146/98 02/09/21 22:31 Pulse Oximetry 95 02/09/21 22:31 MDM - General Adult MDM Narrative: Medical decision making narrative: Is a 60-year-old female with history of diabetes, hypertension hypothyroidism who presents emergency room with complaints of lightheadedness upon standing up. Patient has no exertional chest pain shortness breath or palpitation. Reports sensation of floater in the eyes during this period time no vision losses. No eye pain or visual acuity changes. Neuro exam is intact. On exam, patient is noted to be mildly hypertensive. CT brain and CTA head and neck does show any signs of acute vascular occlusion including CRAO. I performed bedside shunts which did not show any signs of retinal detachment and vitreous hemorrhage or vitreous detachment. I attempted to perform funduscopic eye exam however view was limited due to pupil size. I was unable to visualize fully to determine if there are any signs of central retinal venous occlusion. I discussed with patient that her symptoms may be related to hypertensive retinopathy at this time. I have discussed case with Dr. Gan from Opthalmology and inform patient that she has an appointment with Dr. Gan at 8am tomororw morning. Patient agrees with plan. I explained to patient that she is at risk for losing her vision since that we have not entirely rule out central retinal venous occlusion at this time due ot limited fundoscopic exam. Patient agrees with plan for emergent follow-up. In addition, patient is aware that she needs to come back to the emergency room should she have any vision changes. Although patient has risk factors for cardiac issues, however symptoms of vision changes and symptoms only present on standing up is likely suggestive of neurological origin. At the present time, I do not have any suspicion for ACS as patient has no generalized weakness, exertional fatigue, back pain, chest pain shortness of breath or abdominal complaints at this time. Disposition: Discharge. Patient is given strict return precaution for any worsening signs of vision change, focal neurological deficit, worsening lightheadedness or any other new concerning complaints. Lab Data: Labs: Lab Results 02/09/21 02/09/21 Range/Units 18:55 18:55 WBC 8.0 (4.0-10.0) 10^3/ uL RBC 4.77 (4.1-5.3) 10^6/u L Hgb 13.3 (11.5-15.3) g/dL Hct 41.7 (37.0-47.0) % MCV 87.4 (81-99) fl MCH 27.9 L (28.0-34.0) pg MCHC 31.9 (30.0-36.0) g/dL RDW 13.6 (12.1-15.1) % Plt Count 317 (130-400) 10^3/c mm MPV 10.0 (7.4-10.4) fL Neut % (Auto) 62.1 % Lymph % (Auto) 26.5 % Sanders % (Auto) 7.4 % Eos % (Auto) 3.2 % Baso % (Auto) 0.6 % Neut # (Auto) 4.97 (1.8-7.7) 10^3/u L Lymph # (Auto) 2.1 (0.8-4.8) 10^3/u L Sanders # (Auto) 0.6 (0.2-0.9) 10^3/u L Eos # (Auto) 0.3 (0.0-0.8) 10^3/u L Baso # (Auto) 0.1 (0.0-0.1) 10^3/u L Nucleated RBC % (a uto) 0 % Nucleated RBCs # 0.0 /100WBC Sodium 140 (136-145) mmol/L Potassium 4.0 (3.5-5.1) mmol/L Chloride 102 (98-107) mmol/L Carbon Dioxide 28 (22-29) mmol/L Anion Gap 14.0 (5-19) BUN 10 (8-23) mg/dL Creatinine 0.7 (0.5-0.9) mg/dL GFR Calculation 85.1 L (90-130) mL/min Glucose 90 (65-115) mg/dL Calculated Osmolal ity 289 (285-295) mOsm/k g Calcium 8.5 (8.5-10.5) mg/dL Total Bilirubin 0.3 (0.15-1.2) mg/dL AST 16 (0-32) U/L ALT 14 (0-33) U/L Alkaline Phosphata se 106 H (35-105) IU/L Total Protein 6.9 (6.6-8.7) g/dL Albumin 4.2 (3.5-5.2) g/dL Globulin 2.7 (1.3-4.6) g/dL Lipase 28 (13-60) U/L Imaging Data^: Other Imaging: Radiologist's impression: [address] [id number] Scan ReportSigned Patient: Glenna Miramontes Maggygilson #: [id number]: 1960Acct#:[id number]/Sex: 60 / FADM Date: 02/09/21Loc: ERRoom/Bed:Attending Dr: Ordering Provider/Ordering MD: Sneha Hendrix MD Date of Service: 02/09/21 Procedure(s): CT angio headneck* [id number] Accession Number(s): [id number] Report Number: [id number] PROCEDURE INFORMATION: Exam: CT Angiography Head With Contrast, Arteriography Exam date and time: 02/09/2021 6:26 PM Age: 60 years old Clinical indication: Dizziness and giddiness; Additional info: Light-headedness on standing TECHNIQUE: Imaging protocol: Computed tomography angiography of the head with contrast. Exam focused on the arteries. 3D rendering (Not supervised by radiologist): MIP and/or 3D reconstructed images were created by the technologist. Radiation optimization: All CT scans at this facility use at least one of these dose optimization techniques: automated exposure control; mA and/or kV adjustment per patient size (includes targeted exams where dose is matched to clinical indication); or iterative reconstruction. Contrast material: OMNI 350; Contrast volume: 95 ml; Contrast route: INTRAVENOUS (IV); COMPARISON: CT head wo con* [id number] 02/09/2021 7:56 PM RADIATION DOSE METRICS: Total DLP (mGy-cm): 2527.46 FINDINGS: ANTERIOR CIRCULATION: Right internal carotid artery: Unremarkable. Intracranial segment is patent with no significant stenosis. No aneurysm. Right middle cerebral artery: Unremarkable. No occlusion or significant stenosis. No aneurysm. Right anterior cerebral artery: Unremarkable. No occlusion or significant stenosis. No aneurysm. Left internal carotid artery: Unremarkable. Intracranial segment is patent with no significant stenosis. No aneurysm. Left middle cerebral artery: Unremarkable. No occlusion or significant stenosis. No aneurysm. Left anterior cerebral artery: Unremarkable. No occlusion or significant stenosis. No aneurysm. POSTERIOR CIRCULATION: Right vertebral artery: Unremarkable. No occlusion or significant stenosis. No aneurysm. Left vertebral artery: Unremarkable. No occlusion or significant stenosis. No aneurysm. Basilar artery: Unremarkable. No occlusion or significant stenosis. No aneurysm. Right posterior cerebral artery: Unremarkable. No occlusion or significant stenosis. No aneurysm. Left posterior cerebral artery: Unremarkable. No occlusion or significant stenosis. No aneurysm. Veins: There is a cluster of prominent veins along the medial aspect of the left cerebellar hemisphere associated with a prominent draining vein consistent with a venous angioma. Brain: No definite mass, mass effect, or midline shift. Cerebral ventricles: No ventriculomegaly. Bones/joints: Unremarkable. No acute fracture. Soft tissues: Unremarkable. IMPRESSION: 1. No arterial stenosis, occlusion or aneurysm. 2. 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 PROCEDURE INFORMATION: Exam: CT Angiography Neck With Contrast Exam date and time: 02/09/2021 6:26 PM Age: 60 years old Clinical indication: Dizziness and giddiness; Additional info: Light-headedness on standing TECHNIQUE: Imaging protocol: Computed tomography angiography of the neck with contrast. 3D rendering (Not supervised by radiologist): MIP and/or 3D reconstructed images were created by the technologist. Radiation optimization: All CT scans at this facility use at least one of these dose optimization techniques: automated exposure control; mA and/or kV adjustment per patient size (includes targeted exams where dose is matched to clinical indication); or iterative reconstruction. Contrast material: OMNI 350; Contrast volume: 95 ml; Contrast route: INTRAVENOUS (IV); COMPARISON: CT head wo con* [id number] 02/09/2021 7:56 PM RADIATION DOSE METRICS: Total DLP (mGy-cm): 2527.46 FINDINGS: Right common carotid artery: No stenosis. No dissection or occlusion. Right internal carotid artery: There is mild atherosclerotic disease in the cavernous portion of the right internal carotid artery without significant stenosis. Right external carotid artery: No occlusion or stenosis of the origin. Left common carotid artery: No stenosis. No dissection or occlusion. Left internal carotid artery: There is mild atherosclerotic disease at the origin of the left internal carotid artery with less than 50% stenosis. Left external carotid artery: No occlusion or stenosis of the origin. Right vertebral artery: No stenosis. No dissection or occlusion. Left vertebral artery: No stenosis. No dissection or occlusion. Veins: Dural venous sinuses are patent. Soft tissues: Soft tissues in the neck and thoracic inlet are unremarkable. Bones/joints: No acute fracture. Multilevel disc findings: There is moderate degenerative disc disease in the cervical spine. Lungs: Lung apices are clear. CT/CT angio headneck* [id number] IMPRESSION: No arterial stenosis, occlusion or aneurysm. REFERENCES: NASCET CRITERIA. The degree of internal carotid artery stenosis is based on NASCET criteria. Normal is no stenosis. Mild is less than 50% stenosis. Moderate is 50-69% stenosis. Severe is 70% to 99% stenosis. Total occlusion is no detectable patent lumen. Radiation Dose CTDIVOL = (mGy): DLP = 2527.46~2527.46 (mGy-cm) Dictated By:Hugh Espinoza MDSigned By:Hugh Espinoza MDSigned Date/Time:02/09/212037DD/ 35 Discharge Plan Discharge Patient Disposition: Home Clinical Impression: Light headedness, Floaters Condition: Stable Prescriptions: No Action terbinafine HCl 250 mg tablet 250 mg PO DAILY 30 Days Qty: 30 RF: 2 terbinafine HCl 1 % aerosol,spray 1 spray topical DAILY Qty: 125 RF: 3 multivitamin Capsule 1 cap PO DAILY RF: 0 potassium chloride 20 mEq tablet extended release 20 meq PO DAILY RF: 0 ferrous gluconate 240 mg (27 mg iron) tablet 240 mg PO DAILY RF: 0 aspirin [Aspir-81] 81 mg tablet,delayed release (DR/EC) 81 mg PO DAILY RF: 0 cetirizine 10 mg capsule 10 mg PO DAILY RF: 0 lisinopril 20 mg tablet 20 mg PO BID RF: 0 furosemide 20 mg tablet 10 mg PO QAM RF: 0 omeprazole 20 mg capsule,delayed release(DR/EC) 20 mg PO DAILY RF: 0 atorvastatin 10 mg tablet 10 mg PO DAILY RF: 0 sertraline 100 mg tablet 150 mg PO DAILY RF: 0 bupropion HCl 300 mg tablet extended release 24 hr 300 mg PO QAM RF: 0 levothyroxine 25 mcg capsule 25 mcg PO DAILY RF: 0 (DME) crutch Misc See Rx Instructions .ROUTE .MEDSUPPLY Qty: 2 RF: 0 terbinafine HCl [Antifungal (terbinafine)] 1 % cream 1 applic topical BID Qty: 30 RF: 0 Discharge Orders: Discharge ED (Routine); Ordered 02/11/21 Ordered By: Sneha Hendrix Referrals: Gisel Rasmussen FNP [Primary Care Provider] - Discharge Diet: Advance as tolerated Discharge Activity: Resume usual activity Patient Instructions: Visual Floaters (ED) Activity Restrictions/Additional Instructions: Please follow-up with Dr. Gan tomorrow at 8 AM for your eye exam. Come back to the emergency room you have any vision changes, focal weakness in the arms or legs, chest pain shortness of breath, or any new concerning complaints. Coding Level of Care Code ED Accountant Supervisor for Maira Keith
[2021-02-09] MEDS: sodium chloride 0.9% 500 ML IV (19:05)
[2021-02-09 19:09] LABS: Basophils # 0.1 10^3/uL (0.0-0.1); Basophils % 0.6 %; Eosinophils # 0.3 10^3/uL (0.0-0.8); Eosinophils % 3.2 %; Hematocrit 41.7 % (37.0-47.0); Hemoglobin 13.3 g/dL (11.5-15.3); Lymphocytes # 2.1 10^3/uL (0.8-4.8); Lymphocytes % 26.5 %; Mean Corpuscular HGB Conc 31.9 g/dL (30.0-36.0); Mean Corpuscular Hemoglobin 27.9 pg (28.0-34.0); Mean Corpuscular Volume 87.4 fl (81-99); Monocytes # 0.6 10^3/uL (0.2-0.9); Monocytes % 7.4 %; Neutrophils # 4.97 10^3/uL (1.8-7.7); Neutrophils % 62.1 %; Nucleated Red Blood Cells % 0 %; Platelet Count 317 10^3/cmm (130-400); Red Blood Count 4.77 10^6/uL (4.1-5.3); Red Cell Distribution Width 13.6 % (12.1-15.1)
[2021-02-09 19:51] LABS: Alanine Aminotransferase 14 U/L (0-33); Albumin Level 4.2 g/dL (3.5-5.2); Alkaline Phosphatase 106 IU/L (35-105); Aspartate Amino Transferase 16 U/L (0-32); Blood Urea Nitrogen 10 mg/dL (8-23); Calcium 8.5 mg/dL (8.5-10.5); Carbon Dioxide 28 mmol/L (22-29); Chloride 102 mmol/L (98-107); Globulin 2.7 g/dL (1.3-4.6); Glomerular Filtration Rate 85.1 mL/min (90-130); Glucose 90 mg/dL (65-115); Lipase 28 U/L (13-60); Osmolality Calculated 289 mOsm/kg (285-295); Sodium 140 mmol/L (136-145); Total Bilirubin 0.3 mg/dL (0.15-1.2); Total Protein 6.9 g/dL (6.6-8.7)
[2021-02-09] MEDS: iohexol 350 mg/mL 100 mL Btl IV (20:03)
[2021-02-09 21:00] VITALS: BP 146/98; PULSE 84; RESP 18; O2SAT 97
[2021-02-09 22:31] VITALS: BP 146/98; PULSE 84; RESP 18; O2SAT 95
== END 2021-02-09 22:25 | disposition home or self-care (01) ==
PROVIDERS: Emergency Provider Emergency Medicine; PCP Nurse Practitioner
DX: R42 Dizziness and giddiness (principal); H43.399 Other vitreous opacities, unspecified eye; Z79.82 Long term (current) use of aspirin; E78.5 Hyperlipidemia, unspecified; E11.9 Type 2 diabetes mellitus without complications; I10 Essential (primary) hypertension
CPT/HCPCS: 70450; 70496; 70498; 80053; 83690; 85025; 93005; 96360; 99283; J7040; Q9967

== ENCOUNTER → 2021-06-08 13:00 | Outpatient (BNVA) | payer OTHER, MEDICARE, SELFPAY | PROVIDERS: PCP Nurse Practitioner; Visit Provider Podiatrist Foot & Ankle Surgery | DX: M79.672 Pain in left foot (principal); Z98.890 Other specified postprocedural states; M77.32 Calcaneal spur, left foot | CPT/HCPCS: 73630 ==

== ENCOUNTER 2021-08-16 14:20 | Outpatient (CLI) | payer OTHER, SELFPAY ==
--- NOTE | 2021-08-16 14:28 | MM_ITS ---
WS: [id number] BILATERAL 3D TOMOSYNTHESIS DIGITAL SCREENING MAMMOGRAPHY WITH CAD CLINICAL INFORMATION: SCREENING HISTORY: Screening mammogram. History of small fibroid tumors. COMPARISON: November 04, 2019 TECHNIQUE: Bilateral CC and MLO views. FINDINGS: Scattered fibroglandular densities bilaterally. Long-term stability asymmetric density subareolar RIG HT breast. No suspicious focal mass, asymmetry, calcifications, or architectural distortion. No evide nce of malignancy. MM/[place] [id number] IMPRESSION: BI-RADS: 2-Benign FOLLOW UP: 1 Year Follow-up Recommend return to annual screening mammography.
== END 2021-08-16 14:21 | disposition home or self-care (01) ==
LOC: RADSHAW 14:23
PROVIDERS: PCP Nurse Practitioner; Visit Provider Nurse Practitioner
DX: Z12.31 Encounter for screening mammogram for malignant neoplasm of breast (principal)
CPT/HCPCS: 77063; 77067

== ENCOUNTER → 2021-09-20 13:27 | Outpatient (BNVA) | payer OTHER, SELFPAY | PROVIDERS: PCP Nurse Practitioner; Referring Provider Nurse Practitioner; Visit Provider Podiatrist Foot & Ankle Surgery | DX: S90.31XA Contusion of right foot, initial encounter (principal); W22.03XA Walked into furniture, initial encounter | CPT/HCPCS: 73630; 99213; 99214 ==

== ENCOUNTER → 2021-11-01 13:19 | Outpatient (BNVA) | payer OTHER, SELFPAY | PROVIDERS: PCP Nurse Practitioner; Visit Provider Podiatrist Foot & Ankle Surgery | DX: S90.31XD Contusion of right foot, subsequent encounter (principal); W22.03XD Walked into furniture, subsequent encounter; M79.671 Pain in right foot | CPT/HCPCS: 99213; 99214 ==

== ENCOUNTER 2021-12-13 10:53 | Outpatient (CLI) | payer OTHER, SELFPAY ==
--- NOTE | 2021-12-13 11:09 | MR_ITS ---
WS: [id number] INDICATION: Trauma dorsal foot. Pain TECHNIQUE: Axial PD, axial T2, axial T1, coronal PD, sagittal T1, sagittal STIR, coronal T2 fat sat. FINDINGS: MRI the RIGHT foot without gadolinium enhancement. Subcutaneous edema deep to the palpable marker along the dorsal foot in the area of prior trauma and pain. No underlying drainable fluid olga ections. Tortuous dilated vein deep to the palpable marker with increased T1 signal abnormality suspi cious for thrombosis. Recommend correlation for superficial thrombophlebitis. Underlying tendons appear normal. Distal Achilles is normal in appearance. Normal peroneus longus luis melisa and brevis. Normal peroneal tendon sheath. Extensor and flexor compartment tendons are normal whe re visualized. Hallux valgus with bunion deformity. Subchondral cystic changes at the head of the 1st MTP. Diffuse edema involving the lower leg soft tissues and hindfoot soft tissues. Normal bone marrow sign al in the medial and lateral malleolus. Talar dome is normal. Normal bone marrow signal in the calcan eus and talus. Normal navicular. Cuboid is normal in appearance. Normal cuneiforms. Normal bone marro w signal in the metatarsals. No acute fractures. Impression MR/MR foot RT wo con* [id number] IMPRESSION: 1. No acute fractures or fluid collections. 2. Deep to the palpable marker along the dorsal lateral foot is a prominent to rtuous underlying vein. This demonstrates some increased T1 signal abnormality suspicious for thrombosis. This likely corresponds to the area of palpable pain . Recommend correlation for superficial thrombophlebitis. 3. No other acute findings.
== END 2021-12-13 10:54 | disposition home or self-care (01) ==
LOC: RAD 10:54
PROVIDERS: PCP Nurse Practitioner; Visit Provider Nurse Practitioner
DX: M79.671 Pain in right foot (principal)
CPT/HCPCS: 73718

== ENCOUNTER → 2021-12-14 10:51 | Outpatient (BNVA) | payer OTHER, SELFPAY | PROVIDERS: PCP Nurse Practitioner; Visit Provider Specialist | DX: M17.0 Bilateral primary osteoarthritis of knee (principal) | CPT/HCPCS: 20610; J1100; J2795; J3301; J7327 ==

== ENCOUNTER → 2021-12-19 13:57 | Outpatient (BNVA) | payer OTHER, SELFPAY | PROVIDERS: PCP Nurse Practitioner; Visit Provider Podiatrist Foot & Ankle Surgery | DX: M79.671 Pain in right foot (principal); S90.31XD Contusion of right foot, subsequent encounter; X58.XXXD Exposure to other specified factors, subsequent encounter; I80.9 Phlebitis and thrombophlebitis of unspecified site | CPT/HCPCS: 99214 ==

== ENCOUNTER → 2022-04-18 14:21 | Outpatient (BNVA) | payer OTHER, SELFPAY | PROVIDERS: PCP Nurse Practitioner; Visit Provider Podiatrist Foot & Ankle Surgery | DX: X58.XXXD Exposure to other specified factors, subsequent encounter (principal); S90.31XD Contusion of right foot, subsequent encounter; I80.9 Phlebitis and thrombophlebitis of unspecified site | CPT/HCPCS: 99213 ==

== ENCOUNTER → 2022-06-14 11:17 | Outpatient (BNVA) | payer OTHER, SELFPAY | PROVIDERS: PCP Nurse Practitioner; Visit Provider Specialist | DX: M17.0 Bilateral primary osteoarthritis of knee (principal) | CPT/HCPCS: 20610; J7327 ==

== ENCOUNTER → 2022-07-24 12:47 | Outpatient (BNVA) | payer OTHER, SELFPAY | PROVIDERS: PCP Nurse Practitioner; Visit Provider Podiatrist Foot & Ankle Surgery | DX: S90.31XD Contusion of right foot, subsequent encounter (principal); X58.XXXD Exposure to other specified factors, subsequent encounter; I80.9 Phlebitis and thrombophlebitis of unspecified site | CPT/HCPCS: 99213 ==

== ENCOUNTER 2022-08-22 12:33 | Outpatient (CLI) | payer OTHER, SELFPAY ==
--- NOTE | 2022-08-22 13:00 | MM_ITS ---
WS: [id number] SCREENING DIGITAL BREAST TOMOSYNTHESIS MAMMOGRAM WITH CAD HISTORY: SCREENING COMPARISON: 08/16/2021, 11/13/2013, 12/01/2019 Bilateral CC and MLO with tomosynthesis and synthetic mammography submitted. Computer aided detection analyzed. Breast composition: There are scattered areas of fibroglandular density. Mild asymmetry and slight sp iculation central to the RIGHT nipple seen best on the CC projection. Similar findings on prior studi es but appears slightly more spiculated and dense today. Recommend additional imaging. MM/[place] [id number] IMPRESSION: BI-RADS: 0-Incomplete: Need additional imaging evaluation FOLLOW UP: Need Additional Imaging RIGHT breast: Spot compression views (CC and MLO). True ML. Ultrasound to follo w if abnormality persists.
== END 2022-08-22 12:34 | disposition home or self-care (01) ==
LOC: RAD 12:35
PROVIDERS: PCP Nurse Practitioner; Visit Provider Nurse Practitioner
DX: Z12.31 Encounter for screening mammogram for malignant neoplasm of breast (principal)
CPT/HCPCS: 77063; 77067

== ENCOUNTER 2022-09-13 12:36 | Outpatient (CLI) | payer OTHER, SELFPAY ==
--- NOTE | 2022-09-13 13:04 | MM_ITS ---
WS: [id number] ADDITIONAL VIEWS RIGHT MAMMOGRAM WITH DIGITAL BREAST TOMOSYNTHESIS. HISTORY: ABNORMAL MAMMO COMPARISON: 08/22/2022, 08/16/2021 and 07/10/2018 Spot compression views RIGHT breast in CC, MLO projections and true ML submitted with digital breast tomosynthesis and SM. The asymmetry in the subareolar region significantly reduces and changes with spot compression views. Now the soft tissues are very similar to prior studies. There is no residual mass or distortion. MM/[place] [id number] IMPRESSION: BI-RADS: 2-Benign FOLLOW UP: 1 Year Follow-up
== END 2022-09-13 12:37 | disposition home or self-care (01) ==
LOC: RAD 12:39
PROVIDERS: PCP Nurse Practitioner; Visit Provider Nurse Practitioner
DX: R92.8 Other abnormal and inconclusive findings on diagnostic imaging of breast (principal)
CPT/HCPCS: 77061; G0279

== ENCOUNTER → 2023-01-29 10:18 | Outpatient (BNVA) | payer OTHER, SELFPAY | PROVIDERS: PCP Nurse Practitioner; Visit Provider Specialist | DX: M17.0 Bilateral primary osteoarthritis of knee (principal) | CPT/HCPCS: 20610; J7327 ==

== ENCOUNTER → 2023-04-05 10:49 | Outpatient (BNVA) | payer OTHER, SELFPAY | PROVIDERS: PCP Nurse Practitioner; Visit Provider Podiatrist Foot & Ankle Surgery | DX: M20.42 Other hammer toe(s) (acquired), left foot; M25.872 Other specified joint disorders, left ankle and foot | CPT/HCPCS: 73630; 99213 ==

== ENCOUNTER → 2023-05-13 10:44 | Outpatient (BNVA) | payer OTHER, SELFPAY | PROVIDERS: PCP Nurse Practitioner; Referring Provider Nurse Practitioner; Visit Provider Surgery | DX: Z12.11 Encounter for screening for malignant neoplasm of colon (principal); K21.9 Gastro-esophageal reflux disease without esophagitis; R13.10 Dysphagia, unspecified | CPT/HCPCS: 99204 ==

== ENCOUNTER 2023-07-25 10:09 | Day surgery (SDC) | payer OTHER, SELFPAY ==
--- NOTE | 2023-07-25 10:14 | W.PM.OPSFHP ---
Same Day Surgery H&P Indication for Procedure/HPI DATE OF PROCEDURE: July 25, 2023 CHIEF COMPLAINT/INDICATIONFOR SURGICAL PROCEDURE: need for screning colonoscopy and GERD PREOP DIAGNOSIS: GERD PLANNED PROCEDURE: Operation Date: 07/25/23 11:15 Proposed Procedures p 28210 egd 94415 colon 87945 screen colon A risk Z12.11 K21.9 , R13.10(Not Applicable) - Matti Degroot MD Medications/Allergies* Home Medications Medication Instructions Recorded Confirmed Type bupropion HCl 300 mg 24 hr tablet, 300 mg PO QAM 07/28/19 07/23/23 History extended release cetirizine 10 mg capsule 10 mg PO DAILY 07/28/19 07/23/23 History furosemide 20 mg tablet 10 mg PO QAM 07/28/19 07/23/23 History levothyroxine 25 mcg capsule 25 mcg PO DAILY 07/28/19 07/23/23 History lisinopril 20 mg tablet 20 mg PO BID 07/28/19 07/23/23 History multivitamin 1 cap PO DAILY 07/28/19 07/23/23 History omeprazole 20 mg capsule,delayed 20 mg PO DAILY 07/28/19 07/23/23 History release potassium chloride 20 mEq 20 meq PO DAILY 07/28/19 07/23/23 History tablet,extended release sertraline 100 mg tablet 150 mg PO DAILY 07/28/19 07/23/23 History acetaminophen 500 mg tablet 500 mg PO Q6H PRN Pain, Moderate 07/23/23 07/23/23 History hyaluronate sodium, stabilized 88 88 mg intra-articular DIRECTED 07/23/23 07/23/23 History mg/4 mL intra-articular syringe (Monovisc) Allergies/Adverse Reactions Allergy/AdvReac Type Severity Reaction Status Date / Time hyaluronate sodium, Allergy ALGY-Redness Verified 05/13/23 10:46 cross-linked of Skin [From Gel-One] pravastatin Allergy unknown Verified 05/13/23 10:46 Pertinent History/Comorbid Conditions* Medical History (Updated 05/13/23 @ 11:15 by Matti Degroot MD) Aneurysm Cervicalgia Migraine Hypertension Hyperkinetic syndrome Hypersomnia Hyperlipidemia Hypothyroidism Sleep apnea Spondylosis of cervicothoracic spine with myelopathy Diabetes Family History (Updated 07/28/19 @ 12:27 by Brandy Vonallmen, ENVIRONMENTAL ADVISER) Hypertension Denies family history of Diabetes CAD (coronary artery disease) Cancer Stroke Social History Smoking and tobacco/nicotine status: never used tobacco/nicotine Alcohol intake: never Substance/Drug Use: never Pertinent Exam Findings alert, oriented x 3, clear to auscultation bilaterally, regular rate & rhythm and operative site marked Recommendations Surgery/Procedure today Coding Level of Care Code Acute Code for akbar Keith
[2023-07-25 10:31] VITALS: BP 119/89; PULSE 83; RESP 16; TEMP 36.2; O2SAT 97; BMI 33.3
[2023-07-25] MEDS: sodium chloride 0.9% 1,000 ML 30 ML IV (10:46)
--- NOTE | 2023-07-25 11:05 | ANES.PREANE2 ---
Pre-Anesthetic Assessment Height/Weight: Height 1.8 m Weight 108.409 kg Temp Pulse Resp BP Pulse Ox O2 Del Method 97.1 F L 83 16 119/89 97 Room Air 07/25/23 10:31 07/25/23 10:31 07/25/23 10:31 07/25/23 10:31 07/25/23 10:31 07/25/23 10:31 Preop Diagnosis: GERD Operation Date: 07/25/23 11:15 Proposed Procedures p 19965 egd 61957 colon 01192 screen colon A risk Z12.11 K21.9 , R13.10(Not Applicable) - Matti Degroot MD Familial anesthetic complications: none Was Beta Nova taken within 24 hours: N/A Last intake: Intake Last Liquid Date 07/24/23 Last Liquid Time 23:00 Last Solid Date 07/23/23 Last Solid Time 23:30 Social No alcohol and No tobacco Exam alert, oriented x 3 and clear to auscultation bilaterally Airway Submandibular: within normal limits Cervical ROM: Other (limited ROM) Mallampati: Class II Dentition: full Pulmonary Sleep Apnea (CPAP compliant) CV/HEM Hypertension None reported Hepatic None reported GI Gastroesophageal Reflux Disease Metabolic Morbid Obesity and Thyroid Disease diabetes listed patient denies says her last A1C was 6. Musc/skel None reported Neuropsych Anxiety and Depression Anesthetic Plan ASA status: 3 Anesthesia: MAC Medications/Allergies Home Medications Medication Instructions Recorded Confirmed Last Taken Type bupropion HCl 300 mg 24 hr tablet, 300 mg PO QAM 07/28/19 07/23/23 07/24/23 History extended release cetirizine 10 mg capsule 10 mg PO DAILY 07/28/19 07/23/23 07/24/23 History furosemide 20 mg tablet 10 mg PO QAM 07/28/19 07/23/23 07/24/23 History levothyroxine 25 mcg capsule 25 mcg PO DAILY 07/28/19 07/23/23 07/24/23 History lisinopril 20 mg tablet 20 mg PO BID 07/28/19 07/23/23 07/24/23 History multivitamin 1 cap PO DAILY 07/28/19 07/23/23 07/24/23 History omeprazole 20 mg capsule,delayed 20 mg PO DAILY 07/28/19 07/23/23 07/24/23 History release potassium chloride 20 mEq 20 meq PO DAILY 07/28/19 07/23/23 07/24/23 History tablet,extended release sertraline 100 mg tablet 150 mg PO DAILY 07/28/19 07/23/23 07/24/23 History Low profile carbon fiber insoles #1 ea 12/19/21 07/25/23 07/24/23 Rx Orthopedic Shoes- [place] GDEFY #1 ea 04/05/23 07/25/23 07/24/23 Rx [employer] acetaminophen 500 mg tablet 500 mg PO Q6H PRN Pain, Moderate 07/23/23 07/23/23 07/24/23 History hyaluronate sodium, stabilized 88 88 mg intra-articular DIRECTED 07/23/23 07/23/23 01/16/23 History mg/4 mL intra-articular syringe (Monovisc) Allergies Allergy/AdvReac Type Severity Reaction Status Date / Time hyaluronate sodium, Allergy ALGY-Redness Verified 07/25/23 10:30 cross-linked of Skin [From Gel-One] pravastatin Allergy unknown Verified 07/25/23 10:30 Current Medications Generic Name Dose Route Start Last Admin Trade Name Freq PRN Reason Stop Dose Admin Sodium Chloride 1,000 mls @ 30 mls/hr 07/25/23 10:15 07/25/23 10:46 Sodium Chloride 0.9% IV 30 mls/hr .Q24H FAHAD Administration PFSH Anesthesia Medical History (Updated 05/13/23 @ 11:15 by Matti Degroot MD) Aneurysm Cervicalgia Migraine Hypertension Hyperkinetic syndrome Hypersomnia Hyperlipidemia Hypothyroidism Sleep apnea Spondylosis of cervicothoracic spine with myelopathy Diabetes Family History Other Hypertension Denies family history of Diabetes CAD (coronary artery disease) Cancer Stroke Social History Smoking and tobacco/nicotine status: never used tobacco/nicotine Alcohol intake: never Substance/Drug Use: never Data Anesthesia Cardiac Studies: No Data to Display
[2023-07-25 11:34] LABS: Anion Gap 14.7 (5-19); Blood Urea Nitrogen 11 mg/dL (8-23); Calcium 8.4 mg/dL (8.5-10.5); Carbon Dioxide 25 mmol/L (22-29); Chloride 104 mmol/L (98-107); Glomerular Filtration Rate 72.4 mL/min (90-130); Glucose 99 mg/dL (65-115); Osmolality Calculated 289 mOsm/kg (285-295); Potassium 3.7 mmol/L (3.5-5.1); Sodium 140 mmol/L (136-145)
[2023-07-25 13:04] VITALS: BP 132/90; PULSE 81; RESP 16; TEMP 36.3; O2SAT 97
[2023-07-25 13:17] VITALS: BP 146/90; PULSE 72; RESP 16; TEMP 36.2
--- NOTE | 2023-07-25 13:35 | ANE.PACU2 ---
Inpatient post-anesthesia follow up: Airway intact: Yes Vital signs: Temperature 97.2 F Pulse Rate 72 Respiratory Rate 16 Blood Pressure 146/90 Pulse Oximetry 97 Oxygen Delivery Me thod Room Air Oxygen Flow Rate Fraction of Inspir ed Oxygen Hydration adequate: Yes Nausea and vomiting: No Pain level: 1 Mental status: Baseline
== END 2023-07-25 13:38 | disposition home or self-care (01) ==
PROVIDERS: Anesthesiology; PCP Nurse Practitioner; Visit Provider Surgery
PROC: 0DJD8ZZ Inspection of Lower Intestinal Tract, Via Natural or Artificial Opening Endoscopic (ICD-10-PCS; CPT 45378; principal; 2023-07-25 11:15)
PROC: 0DJ08ZZ Inspection of Upper Intestinal Tract, Via Natural or Artificial Opening Endoscopic (ICD-10-PCS; CPT 43235; 2023-07-25 11:15)
DX: Z12.11 Encounter for screening for malignant neoplasm of colon (principal); K21.9 Gastro-esophageal reflux disease without esophagitis; R13.10 Dysphagia, unspecified; K31.7 Polyp of stomach and duodenum; K29.70 Gastritis, unspecified, without bleeding; G47.30 Sleep apnea, unspecified; E66.01 Morbid (severe) obesity due to excess calories; Z68.33 Body mass index [BMI] 33.0-33.9, adult; I10 Essential (primary) hypertension; E11.9 Type 2 diabetes mellitus without complications; E03.9 Hypothyroidism, unspecified; E78.5 Hyperlipidemia, unspecified
CPT/HCPCS: 43251; 45378; 80048; 88305; J2704; J7030

== ENCOUNTER → 2023-07-30 13:27 | Outpatient (BNVA) | payer OTHER, SELFPAY | PROVIDERS: PCP Nurse Practitioner; Visit Provider Podiatrist Foot & Ankle Surgery | DX: M20.42 Other hammer toe(s) (acquired), left foot (principal); M25.872 Other specified joint disorders, left ankle and foot | CPT/HCPCS: 99213 ==

== ENCOUNTER → 2023-08-07 13:03 | Outpatient (BNVA) | payer OTHER, SELFPAY | PROVIDERS: PCP Nurse Practitioner; Visit Provider Surgery | DX: Z09 Encounter for follow-up examination after completed treatment for conditions other than malignant neoplasm (principal) | CPT/HCPCS: 99213 ==

== ENCOUNTER → 2023-08-23 09:44 | Outpatient (BNVA) | payer OTHER, SELFPAY | PROVIDERS: PCP Nurse Practitioner; Visit Provider Specialist | DX: M17.0 Bilateral primary osteoarthritis of knee (principal) | CPT/HCPCS: 20610; J1100; J2795; J3301; J7327 ==

== ENCOUNTER 2023-09-27 14:19 | Outpatient (CLI) | payer OTHER, SELFPAY ==
--- NOTE | 2023-09-27 14:27 | MM_ITS ---
WS: [id number] BILATERAL 3D TOMOSYNTHESIS DIGITAL SCREENING MAMMOGRAPHY WITH CAD CLINICAL INFORMATION: SCREENING HISTORY: Screening mammogram. No current complaints. COMPARISON: 2022 TECHNIQUE: Bilateral CC and MLO views. FINDINGS: Scattered fibroglandular densities bilaterally. No suspicious focal mass, asymmetry, calcifications, or architectural distortion. No evidence of malignancy. Stable dense parenchymal tissue deep to the R IGHT areola. This was previously evaluated and appears stable since 2018. IMPRESSION: MM/[place] [id number] BI-RADS: 2-Benign FOLLOW UP: 1 Year Follow-up Recommend return to annual screening mammography.
== END 2023-09-27 14:20 | disposition home or self-care (01) ==
LOC: RAD 14:19
PROVIDERS: PCP Nurse Practitioner; Visit Provider Nurse Practitioner
DX: Z12.31 Encounter for screening mammogram for malignant neoplasm of breast (principal); R92.323 Mammographic fibroglandular density, bilateral breasts
CPT/HCPCS: 77063; 77067

== ENCOUNTER 2023-11-10 15:44 | Emergency (ER) | payer OTHER, SELFPAY ==
[2023-11-10 15:59] VITALS: BP 142/79; PULSE 87; RESP 16; TEMP 36.9; O2SAT 95; BMI 40.4
--- NOTE | 2023-11-10 16:19 | USR_ITS ---
PROCEDURE INFORMATION: Exam: US Duplex Right Lower Extremity Veins, Limited Exam date and time: 11/10/2023 4:52 PM Age: 63 years old Clinical indication: Pain; Leg, upper; Right; Additional info: Pain swelling redness right medial knee, HX of thrombus TECHNIQUE: Imaging protocol: Real-time duplex ultrasound of the right extremity with 2-D zuniga scale, color Doppler flow and spectral waveform analysis including responses to compression and other maneuvers (when performed) with image documentation. Limited exam was focused on the right lower extremity veins. COMPARISON: MR foot RT wo con* [id number] 12/13/2021 11:34 AM FINDINGS: Right deep veins: Unremarkable. The common femoral, femoral, proximal profunda femoral, popliteal, posterior tibial and peroneal veins are patent without thrombus. Normal Doppler waveforms. Normal compressibility and/or augmentation response. Superficial veins: Heterogeneously hypoechoic, nearly occlusive to occlusive thrombus in the greater saphenous vein, extending from below the knee to the upper thigh. Greater saphenous vein at the saphenofemoral junction is patent without thrombus. Soft tissues: Unremarkable. US/[place] [id number] IMPRESSION: 1. No sonographic evidence of deep vein thrombosis. 2. Heterogeneously hypoechoic, nearly occlusive to occlusive thrombus in the greater saphenous vein, extending from below the knee to the upper thigh.
--- NOTE | 2023-11-10 16:21 | ED_ITS ---
HPI - Extremity Problem General: Chief complaint: Extremity Problem,Nontraumatic Stated complaint: right knee pain Time Seen by Provider: 11/10/23 16:08 History of Present Illness: Patient presents to the ER for pain redness and swelling of the right medial distal thigh area. This been going on for approximately 5 days. [facility] and [facility] are they have an [facility] planned there is been no date. Patient believes this is a blood clot. Patient does have a history of superficial thrombophlebitis in the same leg in the posterior calf region. Patient has been on full-strength aspirin for the last 5 days. The area continues to get more reddened and painful and swollen. Review of Systems General: Reports: 10 or more systems reviewed and unremarkable except in HPI and below PFSH ED PFSH: Medical History Aneurysm Cervicalgia Migraine Hypertension Hyperkinetic syndrome Hypersomnia Hyperlipidemia Hypothyroidism Sleep apnea Spondylosis of cervicothoracic spine with myelopathy Diabetes Family History Other Hypertension Denies family history of Diabetes CAD (coronary artery disease) Cancer Stroke Social History Smoking and tobacco/nicotine status: never used tobacco/nicotine Alcohol intake: never Substance/Drug Use: never Physical Exam Const: COMMON NORMALS: no acute distress, average body habitus, patient oriented x3, no limitations, healthy appearing, alert and well nourished Neck/C-Spine: COMMON NORMALS: no JVD Chest: COMMONS NORMALS: normal inspection of the chest and normal palpation of entire chest wall Resp: COMMON NORMALS: normal respiratory effort, No retractions, No use of accessory muscles and clear to auscultation bilaterally AUSCULTATION: clear to auscultation bilaterally Cardio: COMMON NORMALS: no JVD, regular rate, regular rhythm, S1 normal heart sound present, S2 normal heart sound present, No gallops present (Cardio), No clicks present (Cardio) and No murmurs present (Cardio) RATE: regular rate RHYTHM: regular rhythm HEART SOUNDS: S1 normal heart sound present and S2 normal heart sound present GI: COMMON NORMALS: Normal to inspection, nondistended, normoactive bowel sounds present, Soft to palpation, non-tender, No hepatosplenomegaly present and no masses PALPATION: Yes Soft to palpation and Yes No hepatosplenomegaly present Extremity: NARRATIVE EXTREMITY EXAM: Right distal thigh medial region hard swollen reddened tender to palpation area consistent with what may be a thrombus. Neuro: COMMON NORMALS: patient oriented x3 SENSORIUM/ORIENTATION: Yes alert Course Vital Signs: Vital signs: Vital Signs Temperature 98.5 F 11/10/23 15:59 Pulse Rate 76 11/10/23 17:26 Respiratory Rate 16 11/10/23 16:34 Blood Pressure 137/79 11/10/23 17:26 Pulse Oximetry 96 11/10/23 17:26 Oxygen Delivery Me thod Room Air 11/10/23 17:26 MDM - Extremity (Nontraumatic) Medical Decision Making Patient had ultrasound of her left lower extremity, showed no DVT but did show a nearly occlusive thrombus in her greater saphenous vein. On further research this sometimes extends into the DVT therefore we will treat this with anticoagulation and have her follow-up with her family practice doctor and/or design agent further recommendations. We will put the patient on Xarelto. Differential Diagnosis Likely superficial thrombophlebitis and deep vein thrombosis of lower extremity; Unlikely herpes zoster, gout, cellulitis, deep venous thrombosis of upper extremity or lower extremity edema Medical Records I reviewed the patient's medical records. Lab Data I reviewed the patient's lab results. Radiology Impressions Venous Duplex 11/10/23 16:19 IMPRESSION: 1. No sonographic evidence of deep vein thrombosis. 2. Heterogeneously hypoechoic, nearly occlusive to occlusive thrombus in the greater saphenous vein, extending from below the knee to the upper thigh. All radiology interpretation(s) finalized by discharge Discharge Plan Discharge Patient Disposition: Home Clinical Impression: Thrombosis of right saphenous vein Condition: Stable Prescriptions: New Xarelto DVT-PE Treat 30d Start 15 mg (42)- 20 mg (9) tablets,dose pack See Rx Instructions .ROUTE .COMPLEX Qty: 51 0RF Protocol: Xarelto Dose Pack Condition: Start Dose/Route: 15 mg twice daily Instruction: after 21 days, Condition: Transition to Dose/Route: 20 mg once daily Instruction: thereafter Rx Instructions: take one-15 mg tablet twice daily for 21 days, then one-20 mg tablet once daily; must take with meal/food No Action multivitamin Capsule 1 cap PO DAILY potassium chloride 20 mEq tablet extended release 20 meq PO DAILY cetirizine 10 mg capsule 10 mg PO DAILY lisinopril 20 mg tablet 20 mg PO BID furosemide 20 mg tablet 10 mg PO QAM sertraline 100 mg tablet 150 mg PO DAILY bupropion HCl 300 mg tablet extended release 24 hr 300 mg PO QAM levothyroxine 25 mcg capsule 25 mcg PO DAILY (DME) Low profile carbon fiber insoles See Rx Instructions .Route .MEDSUPPLY Qty: 1 0RF Rx Instructions: As directed by [facility] (DME) Orthopedic Shoes- [place] [employer] Shoes See Rx Instructions .Route .MEDSUPPLY Qty: 1 0RF Rx Instructions: As directed acetaminophen 500 mg Tablet 500 mg PO Q6H PRN (Reason: Pain, Moderate) Monovisc 88 mg/4 mL Syringe 88 mg INTRA-ARTICULAR DIRECTED Rx Instructions: every 6 months Discharge Orders: Discharge ED (Routine); Ordered 11/10/23 Ordered By: Madhav Cornejo Referrals: Gisel Rasmussen FNP [Primary Care Provider] - 1 week Patient Instructions: Superficial Thrombophlebitis (ED) Activity Restrictions/Additional Instructions: The ultrasound of your right lower extremity showed you have a thrombus or clot in your greater saphenous vein. This is minimally different than a DVT. This is a superficial vein but it connects to a deep vein and sometimes the clot extends from it and forms a DVT. We want to stop this from happening. He had been prescribed Xarelto as a anticoagulant. Please take this as directed. Please follow-up with your family doctor within the next 7 to 10 days for further evaluation and treatment as needed. Coding Level of Care Code ED Mining Support Worker for Maira Keith
[2023-11-10 16:34] VITALS: BP 137/79; PULSE 76; RESP 16; O2SAT 96
[2023-11-10 17:26] VITALS: BP 137/79; PULSE 76; O2SAT 96
[2023-11-10] MEDS: rivaroxaban 10 mg Tablet 15 MG PO (18:06)
[2023-11-10 18:10] VITALS: BP 137/79; PULSE 76; RESP 16; TEMP 36.9; O2SAT 96
== END 2023-11-10 18:11 | disposition home or self-care (01) ==
PROVIDERS: Emergency Provider Emergency Medicine; PCP Nurse Practitioner
DX: I82.811 Embolism and thrombosis of superficial veins of right lower extremity (principal); I10 Essential (primary) hypertension; E78.5 Hyperlipidemia, unspecified; E11.9 Type 2 diabetes mellitus without complications
CPT/HCPCS: 93971; 99284

== ENCOUNTER → 2024-02-26 13:03 | Outpatient (BNVA) | payer OTHER, SELFPAY | PROVIDERS: PCP Nurse Practitioner; Visit Provider Surgery | DX: R03.0 Elevated blood-pressure reading, without diagnosis of hypertension; K31.7 Polyp of stomach and duodenum | CPT/HCPCS: 99214 ==

== ENCOUNTER → 2024-02-28 09:38 | Outpatient (BNVA) | payer OTHER, SELFPAY | PROVIDERS: PCP Nurse Practitioner; Visit Provider Specialist | DX: M17.0 Bilateral primary osteoarthritis of knee (principal); Z71.89 Other specified counseling | CPT/HCPCS: 20610; J7327 ==

== ENCOUNTER 2024-03-19 10:33 | Day surgery (SDC) | payer OTHER, SELFPAY ==
[2024-03-19 10:51] VITALS: BP 169/78; PULSE 80; RESP 16; TEMP 36.1; O2SAT 94; BMI 39.6
[2024-03-19] MEDS: sodium chloride 0.9% 1,000 ML 30 ML IV (11:01)
--- NOTE | 2024-03-19 11:17 | P.HPUD_ITS ---
Surgery/Procedure H&P Update DATE OF PROCEDURE: March 19, 2024 DATE H&P PERFORMED: 02/26/24 H&P UPDATE INFORMATION: I have reviewed H&P completed within last 30 days, I have examined patient prior to procedure, No changes to prior documentation and H&P is in [facility] EMR on date indicated PLANNED PROCEDURE: Operation Date: 03/19/24 11:55 Proposed Procedures p EGD- 54028, R13.10(Not Applicable) - Matti Degroot MD
--- NOTE | 2024-03-19 11:17 | W.PM.OPSUD ---
Surgery/Procedure H&P Update DATE OF PROCEDURE: March 19, 2024 DATE H&P PERFORMED: 02/26/24 H&P UPDATE INFORMATION: I have reviewed H&P completed within last 30 days, I have examined patient prior to procedure, No changes to prior documentation and H&P is in [facility] EMR on date indicated PLANNED PROCEDURE: Operation Date: 03/19/24 11:55 Proposed Procedures p EGD- 91760, R13.10(Not Applicable) - Matti Degroot MD
--- NOTE | 2024-03-19 11:27 | ANES.PREANE2 ---
Pre-Anesthetic Assessment Height/Weight: Height 1.8 m Weight 128.82 kg Temp Pulse Resp BP Pulse Ox O2 Del Method 97 F L 80 16 169/78 94 Room Air 03/19/24 10:51 03/19/24 10:51 03/19/24 10:51 03/19/24 10:51 03/19/24 10:51 03/19/24 10:51 Preop Diagnosis: dysphagia Operation Date: 03/19/24 11:55 Proposed Procedures p EGD- 68270, R13.10(Not Applicable) - Matti Degroot MD Familial anesthetic complications: none Was Beta Nova taken within 24 hours: N/A Was Clonidine taken within 24 hours: N/A Last intake: Intake Last Liquid Date 03/18/24 Last Liquid Time 22:00 Last Solid Date 03/18/24 Last Solid Time 22:00 Social No alcohol and No tobacco Exam alert, oriented x 3, clear to auscultation bilaterally and regular rate & rhythm Airway Submandibular: within normal limits Cervical ROM: within normal limits Mallampati: Class I Dentition: full Pulmonary Sleep Apnea CV/HEM Hypertension None reported Hepatic None reported GI Gastroesophageal Reflux Disease Metabolic Morbid Obesity [facility] [place] Osteoarthritis/DJD Neuropsych Anxiety and Depression Anesthetic Plan ASA status: 2 Anesthesia: MAC Risk of > 500 ml blood loss (7ml/kg in children): No Medications/Allergies Home Medications Medication Instructions Recorded Confirmed Last Taken Type bupropion HCl 300 mg 24 hr tablet, 300 mg PO QAM 07/28/19 03/19/24 03/18/24 History extended release cetirizine 10 mg capsule 10 mg PO DAILY 07/28/19 03/19/24 03/18/24 History furosemide 20 mg tablet 10 mg PO QAM 07/28/19 03/19/24 03/18/24 History levothyroxine 25 mcg capsule 25 mcg PO DAILY 07/28/19 03/19/24 03/18/24 History lisinopril 20 mg tablet 20 mg PO BID 07/28/19 03/19/24 03/18/24 History multivitamin 1 cap PO DAILY 07/28/19 03/19/24 03/18/24 History potassium chloride 20 mEq 20 meq PO DAILY 07/28/19 03/19/24 03/18/24 History tablet,extended release sertraline 100 mg tablet 150 mg PO DAILY 07/28/19 03/19/24 03/18/24 History Low profile carbon fiber insoles #1 ea 12/19/21 03/19/24 07/24/23 Rx Orthopedic Shoes- [place] GDEFY #1 ea 04/05/23 03/19/24 07/24/23 Rx [employer]oes acetaminophen 500 mg tablet 500 mg PO Q6H PRN Pain, Moderate 07/23/23 03/19/24 07/24/23 History hyaluronate sodium, stabilized 88 88 mg intra-articular DIRECTED 07/23/23 03/19/24 03/18/24 History mg/4 mL intra-articular syringe ([employer]) rivaroxaban 15 mg (42)-20 mg (9) See Rx Instructions .Route 11/10/23 03/19/24 03/16/24 Rx tablets in a starter pack (Xarelto .COMPLEX #51 ea DVT-PE Treatment 30-Day Starter) Allergies Allergy/AdvReac Type Severity Reaction Status Date / Time hyaluronate sodium, Allergy ALGY-Redness Verified 02/28/24 09:59 cross-linked of Skin [From Gel-One] pravastatin Allergy unknown Verified 02/28/24 09:59 Current Medications Generic Name Dose Route Start Last Admin Trade Name Freq PRN Reason Stop Dose Admin Sodium Chloride 1,000 mls @ 30 mls/hr 03/19/24 10:45 03/19/24 11:01 Sodium Chloride 0.9% IV 30 mls/hr .Q24H FAHAD Administration PFSH Anesthesia Medical History Aneurysm Cervicalgia Migraine Hypertension Hyperkinetic syndrome Hypersomnia Hyperlipidemia Hypothyroidism Sleep apnea Spondylosis of cervicothoracic spine with myelopathy Diabetes Family History Other Hypertension Denies family history of Diabetes CAD (coronary artery disease) Cancer Stroke Social History Smoking and tobacco/nicotine status: never used tobacco/nicotine Alcohol intake: never Substance/Drug Use: never Data Anesthesia Cardiac Studies: No Data to Display
[2024-03-19 12:11] VITALS: BP 136/76; PULSE 84; RESP 12; TEMP 36.6; O2SAT 94
[2024-03-19 12:26] VITALS: BP 140/76; PULSE 71; RESP 18; O2SAT 94
--- NOTE | 2024-03-19 13:00 | ANE.PACU2 ---
Inpatient post-anesthesia follow up: Airway intact: Yes Vital signs: Temperature 97.9 F Pulse Rate 71 Respiratory Rate 18 Blood Pressure 140/76 Pulse Oximetry 94 Oxygen Delivery Me thod Room Air Oxygen Flow Rate Fraction of Inspir ed Oxygen Hydration adequate: Yes Nausea and vomiting: No Pain level: 1 Mental status: Baseline
== END 2024-03-19 13:00 | disposition home or self-care (01) ==
PROVIDERS: PCP Nurse Practitioner; Visit Provider Surgery
PROC: 0DJ08ZZ Inspection of Upper Intestinal Tract, Via Natural or Artificial Opening Endoscopic (ICD-10-PCS; CPT 43235; principal; 2024-03-19 11:55)
DX: R13.10 Dysphagia, unspecified (principal); K31.7 Polyp of stomach and duodenum; K29.70 Gastritis, unspecified, without bleeding; G47.30 Sleep apnea, unspecified; I10 Essential (primary) hypertension; K21.9 Gastro-esophageal reflux disease without esophagitis; E66.01 Morbid (severe) obesity due to excess calories; Z68.39 Body mass index [BMI] 39.0-39.9, adult; F41.9 Anxiety disorder, unspecified; F32.9 Major depressive disorder, single episode, unspecified
CPT/HCPCS: 43251; 88305; 88309; J1100; J2704; J7030

== ENCOUNTER → 2024-04-01 13:22 | Outpatient (BNVA) | payer OTHER, SELFPAY | PROVIDERS: PCP Nurse Practitioner; Visit Provider Surgery | DX: Z09 Encounter for follow-up examination after completed treatment for conditions other than malignant neoplasm (principal) | CPT/HCPCS: 99213 ==

== ENCOUNTER → 2024-08-13 11:19 | Outpatient (BNVA) | payer OTHER, SELFPAY | PROVIDERS: PCP Nurse Practitioner; Visit Provider Podiatrist Foot & Ankle Surgery | DX: M20.42 Other hammer toe(s) (acquired), left foot (principal); M25.872 Other specified joint disorders, left ankle and foot; M79.672 Pain in left foot; G57.63 Lesion of plantar nerve, bilateral lower limbs | CPT/HCPCS: 99214 ==

== ENCOUNTER → 2024-08-28 09:24 | Outpatient (BNVA) | payer OTHER, SELFPAY | PROVIDERS: PCP Nurse Practitioner; Visit Provider Specialist | DX: M17.0 Bilateral primary osteoarthritis of knee (principal) | CPT/HCPCS: 20610; J7327 ==

== ENCOUNTER 2024-09-15 12:43 | Outpatient (CLI) | payer OTHER, SELFPAY ==
--- NOTE | 2024-09-15 12:49 | CT_ITS ---
WS: [id number] CT SINUSES TECHNIQUE: Noncontrast CT of the paranasal sinuses with coronal and sagittal reformatted images. CLINICAL INFORMATION: CHRONIC MAXILLARY SINUSITIS COMPARISON: None. DLP: 354.[address] scans at [facility] use at least one of these dose optimization techniques: automated exposure control; mA and/or kV adjustment per patient size (includes targeted exams where dose is matched to clinical indication); or iterative reconstruction. FINDINGS: RIGHT to LEFT nasal septal deviation measuring 5 mm. Frontal sinuses are well aerated. Mild mucosal thickening in the ethmoid air cells. Frontal sinuses and maxillary sinuses are well aerated. Normal pterygoid plates. Normal pterygopalatine fossa. Normal sphenoid sinuses. Mild mucosal thickening along the sphenoid sinus ostia. Mastoid air cells are well aerated. Normal posterior nasopharynx. Normal parapharyngeal fat. No other acute findings. CT/CT sinus wo con* [id number] IMPRESSION: 1. RIGHT to LEFT nasal septal deviation measuring 5 mm. 2. Paranasal sinuses are well aerated. 3. Mild narrowing of the ostiomeatal units bilaterally which remain patent. 4. Mastoid air cells are well aerated.
== END 2024-09-15 12:44 | disposition home or self-care (01) ==
PROVIDERS: PCP Nurse Practitioner; Visit Provider Plastic Surgery Plastic Surgery Within the Head and Neck
DX: J34.2 Deviated nasal septum (principal); R93.89 Abnormal findings on diagnostic imaging of other specified body structures
CPT/HCPCS: 70486

== ENCOUNTER 2024-10-16 13:21 | Outpatient (CLI) | payer OTHER, SELFPAY ==
--- NOTE | 2024-10-16 13:24 | MM_ITS ---
WS: [id number] BILATERAL 3D TOMOSYNTHESIS DIGITAL SCREENING MAMMOGRAPHY WITH CAD CLINICAL INFORMATION: SCREENING HISTORY: Screening mammogram. No current complaints. COMPARISON: 2023 TECHNIQUE: Bilateral CC and MLO views. FINDINGS: Scattered fibroglandular densities bilaterally. No suspicious focal mass, asymmetry, calcifications, or architectural distortion. No evidence of malignancy. MM/MM scr BI tomosynthesis [id number] IMPRESSION: DENSITY: There are scattered areas of fibroglandular density. BI-RADS: 2 - Benign. FOLLOW UP: 1 Year Follow-up Recommend return to annual screening mammography.
== END 2024-10-16 13:22 | disposition home or self-care (01) ==
PROVIDERS: PCP Nurse Practitioner; Visit Provider Nurse Practitioner
DX: Z12.31 Encounter for screening mammogram for malignant neoplasm of breast (principal); R92.323 Mammographic fibroglandular density, bilateral breasts
CPT/HCPCS: 77063; 77067

== ENCOUNTER 2025-04-02 14:14 | Outpatient (CLI) | payer OTHER, SELFPAY ==
--- NOTE | 2025-04-02 14:18 | XR_ITS ---
WS: [id number] DEXA (DUAL ENERGY X-RAY ABSORPTIOMETRY) Bone mineral density was performed using a [employer] machine. HISTORY: SCREENING COMPARISON: None available. Lumbar spine BMD (L1-L4): 1.174 g/cm2 T score: -0.1 Z score: 0.4 Total hip BMD: Left: 1.017 g/cm2. T score: 0.1 Z score: 0.5 Right: 1.060 g/cm2. T score: 0.4 Z score: 0.8 10 year probability of a major osteoporotic fracture is 6.8%. XR/XR DEXA axial skeleton* [id number] IMPRESSION: NORMAL BONE MINERAL DENSITY based upon the WHO classification for females.
== END 2025-04-02 14:15 | disposition home or self-care (01) ==
LOC: RAD 14:15
PROVIDERS: PCP Nurse Practitioner; Visit Provider Nurse Practitioner
DX: Z13.820 Encounter for screening for osteoporosis (principal); Z78.0 Asymptomatic menopausal state
CPT/HCPCS: 77080

== ENCOUNTER → 2025-04-05 13:48 | Outpatient (BNVA) | payer OTHER, SELFPAY | PROVIDERS: PCP Nurse Practitioner; Visit Provider Podiatrist Foot & Ankle Surgery | DX: M79.672 Pain in left foot (principal); M20.42 Other hammer toe(s) (acquired), left foot; M25.872 Other specified joint disorders, left ankle and foot; G57.63 Lesion of plantar nerve, bilateral lower limbs; S90.32XA Contusion of left foot, initial encounter; W22.8XXA Striking against or struck by other objects, initial encounter | CPT/HCPCS: 73630; 99214 ==